=== PATIENT | female | born 1960 | race Caucasian/White ===

== ENCOUNTER 2018-07-30 11:55 | Emergency (ER) | payer MEDICAID, SELFPAY ==
[2018-07-30 12:13] VITALS: BP 108/79; PULSE 72; RESP 18; TEMP 36.7; O2SAT 97
--- NOTE | 2018-07-30 12:56 | DI.RAD_ITS ---
SYMPTOMS/DIAGNOSIS: LEFT FOOT INJURY, H/O FUSION LEFT FOOT: There is a mildly displaced oblique fracture of the distal metaphysis of the 5th metatarsal.
--- NOTE | 2018-07-30 12:57 | W.ED.GENAD ---
Discharge Plan Disposition Patient Disposition: HOME Condition: Fair Discharge Details Chief Complaint: Orthopedic Clinical Impression: Closed fracture of fifth metatarsal bone Primary Care Provider: Ronel Pike ED Provider: Adry Madden Home Meds and New Rx's Prescriptions: Continue gabapentin 300 MG capsule 900 mg PO TID Qty: 270 RF: 6 ibuprofen 200 MG capsule 3 - 4 tab PO PRN PRNRF: 0 acetaminophen [Mapap Extra Strength] 500 MG tablet 1,000 mg PO TID Qty: 180 RF: 3 Discharge Instructions Instructions: Foot Fracture in Adults (ED) Additional Instructions: Encourage rest, ice, elevation. Keep boot on until evaluated by orthopedics. Please contact office to schedule follow-up appointment. Tylenol and/or ibuprofen as needed for discomfort Referrals: Sammy Mercado MD [ [facility] STAFF PHYSICIAN] - ([phone]) Discharge Data Discharge Date/Time-TO BE ENTERED AT DEPARTURE: 07/30/18 14:09 Medical Decision Making Patient presents today with chief complaint of left foot pain. On exam, patient was noted to have ecchymosis along the lateral aspect of the midfoot dorsally. No swelling. Patient has chronic sensation changes but denies any acute changes since the incident yesterday. The anatomy of the patient's foot is greatly changed associated with surgical changes, patient has history of foot and ankle fusion. We will obtain imaging. Discussed this plan with the patient is in agreement XR significant for fracture of the 5th metat[address] Dr. Mercado reviewed xr, advised boot. Patient placed in boot. Encouraged rest, ice, elevation. Tylenol and/or Motrin as needed for discomfort. She will f/u Dr. Mercado, patient will call to schedule appointment. Will keep boot in place until evaluated by orthopedics. All of her questions and concerns were addressed, she is in agreement with this plan. Advised on activities that she should avoid that may displace this further. HPI General Mode of arrival: ambulatory. Date/Time Provider Initiated Documentation: 07/30/18 12:02. Limitations to Documentation: no limitations. Information obtained by: patient. HPI Narrative: Patient presents today with chief complaint of left foot pain. Patient has history of left foot and ankle fusion, reports that her fusion was performed [address] Mercado. She reports she typically does quite well with this, has found supportive shoes that help with her management of her chronic discomfort. States that she has altered sensation chronically, reports that she often feels like there is something between my toes. Reports that yesterday she missed step coming down steps and since that time has noted pain along the lateral midfoot with associated ecchymosis. Denies any acute change in her sensation. Denies other injury to time the incident. Did not actually fall Related Data Home Medications Medication Instructions Recorded Confirmed acetaminophen [Mapap Extra 1,000 mg PO TID #180 tab 12/06/16 Strength] ibuprofen 3 - 4 tab PO PRN PRN 12/06/16 12/06/16 gabapentin 900 mg PO TID #270 tab-cap 03/04/18 Previous Rx's Medication Instructions Recorded acetaminophen [Mapap Extra 1,000 mg PO TID #180 tab 12/06/16 Strength] gabapentin 900 mg PO TID #270 tab-cap 03/04/18 Allergies Allergy/AdvReac Type Severity Reaction Status Date / Time naproxen sodium [From Aleve] Allergy Intermediate Hives Unverified 07/30/18 12:17 adhesive AdvReac Mild Blistering Unverified 01/01/18 08:55 morphine AdvReac hallucinations/can't Unverified 01/01/18 08:55 talk General Stated Complaint: Orthopedic VISHNU: 4 Review of Systems Constitutional Denies chills and Denies fever(s) Musculoskeletal Reports as per HPI Integumentary/Breasts Reports as per HPI Neurologic Reports as per HPI [facility] Social History Smoking/Tobacco Use Status: Former Tobacco Use Exam Const General: cooperative, healthy appearing, comfortable, no acute distress and well developed Nutritional Appearance: average body habitus and well nourished Orientation: alert and awake Eyes General: appearance normal, both eyes and all related structures Resp Effort & Inspection: normal respiratory effort, able to speak in complete sentences and no respiratory distress Cardio Rate: regular rate Rhythm: regular rhythm Skin General skin exam: ecchymosis (dorsal lateral aspect of the left foot) and no erythema Neuro General: alert and awake Cognition: normal cognition Speech: speech normal Gait: antalgic Motor: tone not normal throughout (patient strength of LLE is limited secondary to limited ROM) Sensory Exam: sensory deficits noted (patient reports chronic deficits) Extrem General: abnormal to inspection (patient has chronic appearing deformities to the left ankle and foot. Incisions appear to have healed well. Ecchymosis noted over dorsal aspect of foot. This is area of maximal discomfort. Minimal pain with palpation over the 5th metatarsal) and normal capillary refill Psych Appearance: grossly normal and well kempt Mental Status: mental status grossly normal Speech and Movement: speech and movement normal Course Vital Signs Temperature 36.7 C 07/30/18 12:13 Pulse 72 07/30/18 12:13 Respiratory Rate 18 07/30/18 12:13 Blood Pressure 108/79 07/30/18 12:13 Pulse Oximetry 97 07/30/18 12:13 Temperature 36.7 C 07/30/18 12:13 Temperature Source Temporal Artery Scan 07/30/18 12:13 Pulse 72 07/30/18 12:13 Respiratory Rate 18 07/30/18 12:13 Respiratory Effort 07/30/18 12:15 Blood Pressure 108/79 07/30/18 12:13 Blood Pressure Position Sitting 07/30/18 12:13 Pulse Oximetry 97 07/30/18 12:13 Oxygen Delivery Method Room Air 07/30/18 12:13 Oxygen Flow Rate 0 07/30/18 12:13 Pain Level 6 07/30/18 12:15
--- NOTE | 2018-07-30 13:01 | ED.GENADUL_ITS ---
Discharge Plan Disposition Patient Disposition: HOME Condition: Fair Discharge Details Chief Complaint: Orthopedic Clinical Impression: Closed fracture of fifth metatarsal bone Primary Care Provider: Ronel Pike ED Provider: Adry Madden Home Meds and New Rx's Prescriptions: Continue gabapentin 300 MG capsule 900 mg PO TID Qty: 270 RF: 6 ibuprofen 200 MG capsule 3 - 4 tab PO PRN PRNRF: 0 acetaminophen [Mapap Extra Strength] 500 MG tablet 1,000 mg PO TID Qty: 180 RF: 3 Discharge Instructions Instructions: Foot Fracture in Adults (ED) Additional Instructions: Encourage rest, ice, elevation. Keep boot on until evaluated by orthopedics. Please contact office to schedule follow-up appointment. Tylenol and/or ibuprofen as needed for discomfort Referrals: Sammy Mercado MD [ [facility] STAFF PHYSICIAN] - ([phone]) Discharge Data Discharge Date/Time-TO BE ENTERED AT DEPARTURE: 07/30/18 14:09 Medical Decision Making Patient presents today with chief complaint of left foot pain. On exam, patient was noted to have ecchymosis along the lateral aspect of the midfoot dorsally. No swelling. Patient has chronic sensation changes but denies any acute changes since the incident yesterday. The anatomy of the patient's foot is greatly changed associated with surgical changes, patient has history of foot and ankle fusion. We will obtain imaging. Discussed this plan with the patient is in agreement XR significant for fracture of the 5th met[address] Mercado reviewed xr, advised boot. Patient placed in boot. Encouraged rest, ice, elevation. Tylenol and/or Motrin as needed for discomfort. She will f/u Dr. Mercado, patient will call to schedule appointment. Will keep boot in place until evaluated by orthopedics. All of her questions and concerns were addressed, she is in agreement with this plan. Advised on activities that she should avoid that may displace this further. HPI General Mode of arrival: ambulatory . Date/Time Provider Initiated Documentation: 07/30/18 12:02 . Limitations to Documentation: no limitations . Information obtained by: patient . HPI Narrative: Patient presents today with chief complaint of left foot pain. Patient has history of left foot and ankle fusion, reports that her fusion was performed [address] Mercado. She reports she typically does quite well with this, has found supportive shoes that help with her management of her chronic discomfort. States that she has altered sensation chronically, reports that she often feels like there is something between my toes. Reports that yesterday she missed step coming down steps and since that time has noted pain along the lateral midfoot with associated ecchymosis. Denies any acute change in her sensation. Denies other injury to time the incident. Did not actually fall Related Data Home Medications Medication Instructions Recorded Confirmed acetaminophen [Mapap Extra 1,000 mg PO TID #180 tab 12/06/16 Strength] ibuprofen 3 - 4 tab PO PRN PRN 12/06/16 12/06/16 gabapentin 900 mg PO TID #270 tab-cap 03/04/18 Previous Rx's Medication Instructions Recorded acetaminophen [Mapap Extra 1,000 mg PO TID #180 tab 12/06/16 Strength] gabapentin 900 mg PO TID #270 tab-cap 03/04/18 Allergies Allergy/AdvReac Type Severity Reaction Status Date / Time naproxen sodium [From Aleve] Allergy Intermediate Hives Unverified 07/30/18 12: 17 adhesive AdvReac Mild Blistering Unverified 01/01/18 08:55 morphine AdvReac hallucinations/can't Unverified 01/01/18 08:55 talk General Stated Complaint: Orthopedic VISHNU: 4 Review of Systems Constitutional Denies chills and Denies fever(s) Musculoskeletal Reports as per HPI Integumentary/Breasts Reports as per HPI Neurologic Reports as per HPI [facility] Social History Smoking/Tobacco Use Status: Former Tobacco Use Exam Const General: cooperative, healthy appearing, comfortable, no acute distress and well developed Nutritional Appearance: average body habitus and well nourished Orientation: alert and awake Eyes General: appearance normal, both eyes and all related structures Resp Effort & Inspection: normal respiratory effort, able to speak in complete sentences and no respiratory distress Cardio Rate: regular rate Rhythm: regular rhythm Skin General skin exam: ecchymosis (dorsal lateral aspect of the left foot) and no erythema Neuro General: alert and awake Cognition: normal cognition Speech: speech normal Gait: antalgic Motor: tone not normal throughout (patient strength of LLE is limited secondary to limited ROM) Sensory Exam: sensory deficits noted (patient reports chronic deficits) Extrem General: abnormal to inspection (patient has chronic appearing deformities to the left ankle and foot. Incisions appear to have healed well. Ecchymosis noted over dorsal aspect of foot. This is area of maximal discomfort. Minimal pain with palpation over the 5th metatarsal) and normal capillary refill Psych Appearance: grossly normal and well kempt Mental Status: mental status grossly normal Speech and Movement: speech and movement normal Course Vital Signs Temperature 36.7 C 07/30/18 12:13 Pulse 72 07/30/18 12:13 Respiratory Rate 18 07/30/18 12:13 Blood Pressure 108/79 07/30/18 12:13 Pulse Oximetry 97 07/30/18 12:13 Temperature 36.7 C 07/30/18 12:13 Temperature Source Temporal Artery Scan 07/30/18 12:13 Pulse 72 07/30/18 12:13 Respiratory Rate 18 07/30/18 12:13 Respiratory Effort 07/30/18 12:15 Blood Pressure 108/79 07/30/18 12:13 Blood Pressure Position Sitting 07/30/18 12:13 Pulse Oximetry 97 07/30/18 12:13 Oxygen Delivery Method Room Air 07/30/18 12:13 Oxygen Flow Rate 0 07/30/18 12:13 Pain Level 6 07/30/18 12:15
== END 2018-07-30 14:09 | disposition home or self-care (01) ==
LOC: ER 14:00
PROVIDERS: Emergency Provider Physician Assistant; PCP Nurse Practitioner
DX: S92.352A Displaced fracture of fifth metatarsal bone, left foot, initial encounter for closed fracture (principal); X50.1XXA Overexertion from prolonged static or awkward postures, initial encounter
CPT/HCPCS: 29505; 99284; 73630; 99282; L4361

== ENCOUNTER 2018-08-18 15:21 | Outpatient (CLI) | payer MEDICAID, SELFPAY ==
--- NOTE | 2018-08-18 15:35 | DI.RAD_ITS ---
SYMPTOMS/DIAGNOSIS: EVALUATE LEFT 5TH METATARSAL FX LEFT FOOT: Three views were obtained and again show hindfoot fusion and a mildly displaced fracture of the 5th metatarsal. Alignment appears essentially unchanged in comparison with the examination of July 30.
== END 2018-08-18 15:41 ==
PROVIDERS: PCP Nurse Practitioner; Visit Provider Student in an Organized Health Care Education/Training Program
DX: S92.352D Displaced fracture of fifth metatarsal bone, left foot, subsequent encounter for fracture with routine healing (principal); Z98.1 Arthrodesis status
CPT/HCPCS: 73630

== ENCOUNTER 2018-08-20 11:55 | Outpatient (REF) | payer MEDICAID, SELFPAY ==
[2018-08-20 14:42] LABS: Glucose 91 mg/dL (70-100); TSH (W/Ref FT4) 1.56 uIU/mL (0.358-3.74)
[2018-08-20 15:01] LABS: Cholesterol 245 mg/dL (50-200); HDL Cholesterol 67 mg/dL (40-60); LDL CHOLESTEROL 168 mg/dL (<100); Triglyceride 68 mg/dL (30-150)
[2018-08-21 12:01] LABS: Hepatitis C Ab w Rflx HCV PCR Negative (NEGAT)
== END 2018-08-20 12:15 ==
LOC: NCHCN 11:55
PROVIDERS: PCP Nurse Practitioner; Visit Provider Nurse Practitioner
DX: Z00.00 Encounter for general adult medical examination without abnormal findings (principal); Z13.1 Encounter for screening for diabetes mellitus; Z13.29 Encounter for screening for other suspected endocrine disorder; Z11.59 Encounter for screening for other viral diseases; Z13.220 Encounter for screening for lipoid disorders
CPT/HCPCS: 80061; 82947; 83721; 86803; 84443

== ENCOUNTER 2018-09-02 00:31 | Outpatient (CLI) | payer MEDICAID, SELFPAY ==
--- NOTE | 2018-09-02 08:25 | DI.MAMMO_ITS ---
SYMPTOM/DIAGNOSIS: SCREENING, Z12.39, FAM HX MAMMOGRAMS: Mammograms were interpreted according to the usual protocol including computer analysis with CAD system, tomosynthesis and C view imaging. Comparison with prior examinations. Breast density B. No masses or microcalcifications are seen. There is nothing to suggest malignancy. IMPRESSION: Negative mammogram. Routine screening is recommended. Category I. MQSA ASSESSMENT OF FINDINGS: Negative. Category 1. Patient will receive a letter notifying them of these results. BI-RADS category B. There are scattered areas of fibroglandular density.
== END 2018-09-02 00:51 ==
PROVIDERS: PCP Nurse Practitioner; Visit Provider Nurse Practitioner
DX: Z12.31 Encounter for screening mammogram for malignant neoplasm of breast (principal); Z80.3 Family history of malignant neoplasm of breast
CPT/HCPCS: 77063; 77067

== ENCOUNTER 2018-10-14 09:43 | Day surgery (SDC) | payer MEDICAID, SELFPAY ==
[2018-10-14 10:00] VITALS: BP 107/71; PULSE 77; RESP 16; TEMP 36.8; O2SAT 96
[2018-10-14] MEDS: Lactated Ringers 1,000 ML 80 ML IV (10:28)
--- NOTE | 2018-10-14 11:20 | NERVE_PTH ---
PATIENT: Nakita Medeiros LOC: [facility] U#:[id number] AGE/SX: 58/F ROOM: RE10/14/[address]: Sammy Mercado MD : [id number] BED: DIS: 10/14/2018 SPEC #: [id number] RECD: 10/14/18 13:04 STATUS: JAYANT REJeffery #: [id number] CLARK: 10/14/18 11:[address]: Sammy Mercado DEPT: Surgical Specimen RECD BY: Jolie Moran ENTERED: 10/14/18 13:05 SP TYPE: NERVE OTHR DR: Ronel Pike Tissues: 1 - NERVE BIOPSY Procedures: GROSS AND MICRO LEVEL 2 GROSS AND MICRO LEVEL 4 Comments: [id number]
--- NOTE | 2018-10-14 11:43 | W.PM.DSUDISC ---
Discharge Plan Disposition Patient Disposition: HOME Condition: Good Discharge Details Reason For Visit: L Sural Nerve Excision Attending Provider: Sammy Mercado Primary Care Provider: Ronel Pike Home Meds and New Rx's Prescriptions: New ibuprofen 600 mg tablet 600 mg PO TID PRNQty: 90 RF: 3 acetaminophen 500 mg capsule 1,000 mg PO Q8H PRN (Reason: pain) Qty: 90 RF: 0 Continue gabapentin 300 mg capsule 900 mg PO TID Qty: 270 RF: 6 Discontinued ibuprofen 200 MG capsule 3 - 4 tab PO PRN PRNRF: 0 acetaminophen [Mapap Extra Strength] 500 MG tablet 1,000 mg PO TID PRNRF: 0 Discharge Instructions Additional Instructions: Activity: You may bear weigh on the left leg as tolerated. Use crutches for support. To protect the incision and for comfort, you should wear the fracture walking boot. You may take it off as you desire when not ambulating. You may move your ankle and foot as tolerated. Dressings: The initial dressing should stay on for 3 days. It may then be removed and changed, replaced with gauze and a wrap. It may get wet after 3 days. Medications: - You should take Tylenol and Ibuprofen for baseline pain. - You may apply ice to the ankle. - If you need something stronger, please call Dr. Mercado's office. Follow-up: 7-10 days Equipment/Supplies: Partial Weight Bearing Crutches Activity:: Elevate Remove Dressings/Wound Care:: 72 hours Shower/Bathe:: 72 hours Diet:: As Tolerated Discharge Orders Discharge Orders: Discharge Order (Routine); Ordered 10/14/18 Ordered By: Sammy Mercado DS: Diagnosis Discharge Diagnosis (1) Neuropathy of left sural nerve: Status: Acute
[2018-10-14 12:30] VITALS: BP 97/65; PULSE 69; RESP 16; TEMP 36.1; O2SAT 96
--- NOTE | 2018-10-15 07:37 | ROE_ITS ---
REPORT OF OPERATIVE PROCEDURE DATE OF SURGERY October 14, 2018 PREOPERATIVE DIAGNOSIS Left sural nerve neuroma. POSTOPERATIVE DIAGNOSIS Left sural nerve neuroma. SURGERY Left sural nerve debridement and neurectomy. SURGEON Sammy Mercado M.D. [employer] Sofie Ordoñez PA-C FINDINGS There was a notable area of demyelination and discoloration of the nerve at the level of previous scar from multiple hind-foot surgeries. The sural nerve was transected proximally and allowed to retract into the fatty tissues of the posterior calf. ANESTHESIA MAC ESTIMATED BLOOD LOSS Minimal. COMPLICATIONS None. DISPOSITION The patient was awakened from anesthesia and taken back to the PACU in a stable condition. SPECIMENS Sural nerve. INDICATION FOR PROCEDURE Nakita is a 58-year old who has had multiple high-foot procedures. She has always had some numbness after her surgeries. However, after this most recent surgery, she had an uncomfortable sensation in the fourth web space between the 4th and 5th toes and along the lateral border of the foot. We have tried various conservative treatment options. She had been on chronic gabapentin therapy. However, she continued to have this uncomfortable sensation. As a trade for the uncomfortable sensation and numbness, I did offer sural nerve excision. I am hopeful this will remove the impetus of the discomfort. I did explain to Nakita that she would have permanent numbness over that lateral border of the foot. I also discussed the possibility of having a recurrent neuroma from the cut edge of the nerve. After discussing these treatment options, she desired to proceed. PROCEDURE DESCRIPTION Nakita was greeted in the preoperative holding area. Her identity was confirmed and the correct side was identified and marked. The consent was reviewed with the patient and signed. The history and physical was performed. She was taken back to the Operating Room and placed in the supine position. A large bump was placed underneath the left hip to internally rotate the left leg. The left leg was placed on pillows to elevate it. Prophylactic antibiotics in the form of cefazolin were given. The left leg was prepped with ChloraPrep and draped in a standard fashion. A time-out was performed for safe surgery. The planned surgical site was then injected with 0.25% bupivacaine with epinephrine. Starting shelter between the Achilles tendon and the lateral malleolus, I performed a linear incision. This was taken down sharply proximal to the old incision to identify the sural nerve. The incision was then extended distally in line with the previous incision and extending on to the incision of the lateral hindfoot. This was taken down through the skin. All bleeding was stopped with electrocautery. The lesser vein was identified and then the sural nerve posterior to it. The sural nerve was then dissected fully, both proximally and distally. Once we came into the lateral aspect of the hindfoot, there was notable compression, especially at its branching points to the lateral calcaneus. It was dissected through some of the scar tissue where there was notably, what appeared to be injury to the nerve with demyelination and some significant discoloration. This was traced onto the lateral calcaneus. Once it was dissected fully it was sharply divided. For the proximal aspect of the nerve, I was planning to bury this into the muscles of the either the lateral compartment or the FHL. However, there was a significant amount of fat in this area proximal to the lateral malleolus, which the nerve resided in. There was also a branch for the lateral aspect of the Achilles tendon, which I also did not want to disrupt, and therefore I transected it in the fat and allowed it to retract into the fat. It was under no tension. It was not close to skin or any other nerve or vein branches. The wound was then thoroughly irrigated. The deep tissues were reapproximated with #3-0 Vicryl. The skin was closed with #4-0 Nylon. A dressing of Xeroform, 4x4s and an Mac wrap were applied. She was placed into a fracture walker boot. At the end of the case, all counts were correct. The sural nerve was sent for pathology.
== END 2018-10-14 13:00 | disposition home or self-care (01) ==
PROVIDERS: PCP Nurse Practitioner; Visit Provider Student in an Organized Health Care Education/Training Program
PROC: (CPT 64704; principal; 2018-10-14 11:15)
DX: D36.10 Benign neoplasm of peripheral nerves and autonomic nervous system, unspecified (principal); G57.82 Other specified mononeuropathies of left lower limb
CPT/HCPCS: 64704; 88305; 88302; E0114; J0690; J1100; J1885; J2405; L4361

== ENCOUNTER 2019-07-22 12:20 | Outpatient (REF) | payer MEDICAID, SELFPAY ==
[2019-07-22 19:27] LABS: ALT 24 U/L (14-59); AST 19 U/L (15-37); Albumin 3.7 g/dL (3.4-5.0); Alkaline Phosphatase 91 U/L (46-116); Anion Gap 9.8 mmol/L (3-11); BUN 14 mg/dL (7-18); Bilirubin, Total 0.3 mg/dL (0.2-1.0); CO2 28.2 mmol/L (21.0-32.0); CREATININE 0.75 mg/dL (0.55-1.02); Calculated LDL 136 mg/dL; Chloride 103 mmol/L (98-107); Cholesterol 247 mg/dL (50-200); Glucose 100 mg/dL (70-100); HDL Cholesterol 53 mg/dL (40-60); Potassium 4.1 mmol/L (3.5-5.1); Sodium 141 mmol/L (136-145); Total Protein 6.7 g/dL (6.4-8.2); Triglyceride 293 mg/dL (30-150)
== END 2019-07-22 12:40 ==
LOC: NCHCN 12:20
PROVIDERS: PCP Nurse Practitioner; Visit Provider Nurse Practitioner
DX: E78.5 Hyperlipidemia, unspecified (principal); R60.0 Localized edema
CPT/HCPCS: 80053; 80061

== ENCOUNTER 2020-03-24 13:44 | Outpatient (REF) | payer MEDICAID, SELFPAY ==
[2020-03-25 17:43] LABS: COVID-19 RT-PCR Result NEGATIVE (Negative)
== END 2020-03-24 14:04 ==
LOC: NCHCN 13:44
PROVIDERS: PCP Nurse Practitioner; Visit Provider Nurse Practitioner Family
DX: J06.9 Acute upper respiratory infection, unspecified (principal)
CPT/HCPCS: U0003

== ENCOUNTER 2020-04-27 18:21 | Outpatient (REF) | payer MEDICAID, SELFPAY ==
[2020-04-27 16:57] LABS: ALT 29 U/L (14-59); AST 23 U/L (15-37); Albumin 3.8 g/dL (3.4-5.0); Alkaline Phosphatase 95 U/L (46-116); Anion Gap 6.8 mmol/L (3-11); BUN 17 mg/dL (7-18); Bilirubin, Total 0.4 mg/dL (0.2-1.0); CO2 30.2 mmol/L (21.0-32.0); CREATININE 0.73 mg/dL (0.55-1.02); Calcium 9.4 mg/dL (8.5-10.1); Chloride 100 mmol/L (98-107); Glucose 96 mg/dL (74-106); Potassium 4.7 mmol/L (3.5-5.1); Sodium 137 mmol/L (136-145); TSH (W/Ref FT4) 0.94 uIU/mL (0.36-3.74); Total Protein 6.8 g/dL (6.4-8.2)
[2020-04-27 17:31] LABS: Abs Immature Grans 0.01 k/cumm (0.0-0.09); Absolute Basophil Count 0.06 k/cumm (0.0-0.2); Absolute Eosinophil Count 0.18 k/cumm (0.0-0.7); Absolute Lymphocyte Count 2.42 k/cumm (1.2-3.4); Absolute Monocyte Count 0.64 k/cumm (0.11-0.7); Absolute Neutrophil Count 3.34 k/cumm (1.2-6.7); Basophils % 0.9; Eosinophils % 2.7; HCT 37.9 % (36.0-46.0); HGB 12.1 g/dL (12.0-15.5); Immature Grans % 0.2 %; Lymphocytes % 36.4; Mean Corp. HGB Concentration 31.9 g/dL (32.0-36.0); Mean Corpuscular Hemoglobin 28.5 pg (27.0-33.0); Mean Corpuscular Volume 89.4 fL (80-95); Mean Platelet Volume 10.1 fL (8.0-11.0); Monocytes % 9.6; Neutrophils % 50.2; Platelet Count 395 x1000/uL (130-400); RBC 4.24 m/cumm (4.00-5.20); RBC Distribution Width 13.3 % (11.7-14.6); White Blood Cell Count 6.65 k/cumm (4.4-10.8)
[2020-04-27 19:39] LABS: ESR 21 mm/hr (0-30)
== END 2020-04-27 18:41 ==
LOC: NCHCN 18:21
PROVIDERS: PCP Nurse Practitioner; Visit Provider Nurse Practitioner
DX: R68.2 Dry mouth, unspecified (principal); E78.5 Hyperlipidemia, unspecified; H04.121 Dry eye syndrome of right lacrimal gland; H04.122 Dry eye syndrome of left lacrimal gland
CPT/HCPCS: 80053; 85652; 84443; 85025

== ENCOUNTER 2020-09-26 05:46 | Outpatient (REF) | payer MEDICAID, SELFPAY ==
[2020-09-29 07:30] LABS: Patient Race White; SARS-CoV-2 RNA Undetected (Undetected); SARS-CoV-2 Specimen Source Nasal
== END 2020-09-26 06:06 ==
LOC: NCHCN 05:46
PROVIDERS: PCP Nurse Practitioner; Visit Provider Nurse Practitioner Family
DX: Z20.828 Contact with and (suspected) exposure to other viral communicable diseases (principal)
CPT/HCPCS: U0003

== ENCOUNTER 2020-12-14 02:09 | Outpatient (CLI) | payer MEDICAID, SELFPAY ==
--- NOTE | 2020-12-14 12:49 | DI.MAMMO_ITS ---
EXAM: MAMMO SCREENING CLINICAL HISTORY: SCREENING, Z12.39 TECHNIQUE: Mammograms were interpreted according to the usual protocol including computer analysis w ISC8 CAD system, tomosynthesis and C-view imaging. COMPARISON: Two thousand thirteen through 2018 FINDINGS: The breasts are composed of mainly fatty density , Breast Density category A. No suspicious masses or suspicious microcalcifications are seen. No skin thickening or abnormal axillary lymph nodes are seen. There has been no significant change from prior exams. IMPRESSION: BI-RADS Category 1, Negative mammogram Yearly screening mammography is recommended. Breast Density - Category A, fatty density. A negative radiographic report should not delay biopsy if a dominant or clinically suspicious mass is present. Up to ten percent of cancers are not identified on mammography. A negative report may reinforce clinical impression. Adenosis and dense breasts may obscure an underlying neoplasm. False positive reports average 6 to 10%. Patient will receive a letter notifying them of these results.
== END 2020-12-14 02:10 ==
LOC: DI 02:09
PROVIDERS: PCP Nurse Practitioner; Visit Provider Nurse Practitioner
DX: Z12.31 Encounter for screening mammogram for malignant neoplasm of breast (principal)
CPT/HCPCS: 77063; 77067

== ENCOUNTER 2020-12-15 12:08 | Emergency (ER) | payer MEDICAID, SELFPAY ==
[2020-12-15 12:15] VITALS: BP 144/92; PULSE 114; RESP 16; TEMP 36.7; O2SAT 93
[2020-12-15] MEDS: Normal Saline 1,000 ML 1000 ML IV ×2 (12:30→13:30)
[2020-12-15 12:41] LABS: Lactate 2.4 mmol/L (0.6-1.4)
[2020-12-15 12:43] LABS: Abs Immature Grans 0.03 10^3/uL (0.0-0.06); Absolute Eosinophil Count 0.12 10^3/uL (0.0-0.7); Absolute Lymphocyte Count 2.08 10^3/uL (1.2-3.4); Absolute Monocyte Count 0.56 10^3/uL (0.1-0.8); Absolute Neutrophil Count 5.34 10^3/uL (1.2-6.7); Basophils % 1.2; Eosinophils % 1.5; HCT 39.5 % (36.0-46.0); HGB 13.3 g/dL (11.2-15.7); Immature Grans % 0.4; Lymphocytes % 25.3; MCH 29.7 pg (27.0-33.0); MCHC 33.7 % (32.0-36.0); MCV 88.2 fL (80-95); MPV 8.7 fL (8.0-11.0); Monocytes % 6.8; Neutrophils % 64.8; Nucleated RBC 0 %; Platelet Count 380 10^3/uL (130-400); RBC 4.48 10^6/uL (3.93-5.22); RDW 13.6 % (11.7-14.6); RDW-SD 44.4 fL; WBC 8.23 10^3/uL (4.4-10.8)
[2020-12-15 12:48] LABS: Bilirubin Negative (Negative); Blood Trace-intact (Negative); Clarity Sl Cloudy (Clear); Glucose Negative (Negative); Ketones 15 mg/dL (Negative); Leukocyte Esterase Negative (Negative); Nitrite Negative (Negative); Specific Gravity 1.025 (1.005-1.025); pH 5.5 (5-8)
[2020-12-15 12:56] LABS: ALT 84 U/L (14-59); AST 42 U/L (15-37); Albumin 3.9 g/dL (3.4-5.0); Alkaline Phosphatase 114 U/L (46-116); Anion Gap 13.2 mmol/L (3-11); BUN 12 mg/dL (7-18); Bilirubin, Total 0.6 mg/dL (0.2-1.0); CO2 24.8 mmol/L (21.0-32.0); CREATININE 0.7 mg/dL (0.55-1.02); Calcium 9.2 mg/dL (8.5-10.1); Chloride 97 mmol/L (98-107); Glucose 105 mg/dL (74-106); Lipase 67 U/L (73-393); Potassium 4.2 mmol/L (3.5-5.1); Sodium 135 mmol/L (136-145); Total Protein 7.8 g/dL (6.4-8.2)
[2020-12-15 12:58] LABS: Bacteria Few HPF (Negative); C & S Indicated? No/Sq. Contamination; Casts Negative LPF (Negative); Crystals Negative HPF (Negative); Epithelial Cells Many HPF (Negative); Mucus Negative (Negative); RBC 0-2 HPF (0-2)
--- NOTE | 2020-12-15 14:04 | ED.GENADUL_ITS ---
Discharge Plan Disposition Patient Disposition: HOME Condition: Stable Discharge Details Clinical Impression: Abdominal pain Primary Care Provider: Ronel Pike ED Provider: Ady Villagran Home Meds and New Rx's Prescriptions: Continued multivitamin tablet 1 tab PO DAILY RF: 0 Calcium with Vitamin D 1 tab PO DAILY RF: 0 buprenorphine-naloxone [Suboxone] 8-2 mg film 1 film SL DAILY RF: 0 fluticasone propionate [Flonase Allergy Relief] 50 mcg/actuation spray,suspension 1 spray MIKE BID RF: 0 gabapentin 300 mg capsule 900 mg PO TID Qty: 270 RF: 6 ibuprofen 600 mg tablet 600 mg PO TID PRNQty: 90 RF: 3 acetaminophen 500 mg capsule 1,000 mg PO Q8H PRN (Reason: pain) Qty: 90 RF: 0 Discharge Instructions Instructions: Abdominal Pain (ED) Additional Instructions: CT imaging and laboratory values do not reveal any obvious emergent process. Please watch for new or worsening symptoms and return to the ER for any concerns as we discussed there are additional outpatient studies that may be indicated to further evaluate your symptoms. Abdominal ultrasound, HIDA scan, surgical referral may all be indicated. Please follow-up with your primary care provider on Saturday as already scheduled to discuss your abdominal pain that has been going on for over 1 month and further evaluation. Discharge Data Discharge Date/Time-TO BE ENTERED AT DEPARTURE: 12/15/20 15:55 Medical Decision Making 60-year-old female presenting with months history of intermittent abdominal pain primarily in the epigastric and right upper quadrant area, typically worse with p.o. intake. Reports decreased p.o. intake and therefore decreased bowel movements but still able to move her bowels. She is scheduled to be seen by her primary care provider on Saturday but was concerned about a twisted bowel and did not want to wait until Saturday if there is something dangerous happening here. Clinically she appears well, nontoxic, afebrile. She was tachycardic upon presentation but during my evaluation her heart rate was in the 90s. She reports at times the pain is a 10 out of 10. Given her duration of symptoms, presentation with tachycardia, subjective tinnitus and pain, will obtain IV access, CBC, CMP, lipase, lactate, urinalysis, give IV fluid. Differential includes but not excluded to GERD, gastritis, peptic ulcer disease, biliary colic, less likely bowel obstruction, ileus, colitis, even less suspicious for acute mesenteric ischemia. Laboratory values reveal a white blood cell count of 8.23 hemoglobin 13.3 hematocrit 39.5 platelet count 388. Sodium 135 potassium 4.2 chloride 97, CO2 24.8 creatinine 0.7 with a GFR greater than 60. Glucose 105 calcium 92 bilirubin 0.6 AST 42 ALT 84 alk phosphatase 114, lipase 67. Urinalysis reveals 15 ketones, trace intact blood, many epithelial cells, contamination. No clear infection. Lactate 2.4 Upon reevaluation patient is resting comfortably. We discussed her initial laboratory values. She is in the process of receiving her first liter of IV fluid, will give a second and I would like to repeat her lactate. Her abdomen is soft, nonsurgical, there is no indication that she has pain at the proportion to her examination. We discussed imaging. Given the location of her symptoms, worsening with food, I certainly do question if this could be biliary colic. Her bilirubin is normal, no elevated white count, LFTs are not grossly abnormal. Given her elevated lactate, her concern of bowel obstruction, I believe from an emergency room standpoint obtaining CT imaging of her abdomen and pelvis with contrast is more prudent than obtaining ultrasound. Patient is agreeable to this plan and if CT imaging is normal she is comfortable following up with her primary care provider on Saturday as already scheduled for further testing such as ultrasound and/or referral to GI-surgery. CT imaging read by radiology as unremarkable CT scan of the abdomen and pelvis. Repeat lactate 0.8 after receiving 1.5 L of IV fluid. We discussed her repeat lactate and her unremarkable CT imaging. Patient is relieved. We did discuss the importance of additional studies such as ultrasound, HIDA scan, potential endoscopy, etc. Patient is comfortable discharge at this time and will pursue further evaluation on Saturday with her primary care provider. She was given strict return precautions. Patient has no additional questions or concerns prior to discharge. Heart rate now in the 80s. Blood pressure 126/87. Patient remains afebrile. Medical Records Medical records reviewed: Yes I reviewed the patient's medical records. Imaging Data Radiologic Study: Attestation: I personally reviewed and interpreted this imaging study as follows: Imaging: CT Scan Radiologist's impression: CT of abdomen and pelvis with contrast unremarkable per radiology Lab Data Lab results reviewed: Yes I reviewed the patient's lab results. Labs: Laboratory Tests Range/Units 12/15/20 12/15/20 12/15/20 12:30 12:30 12:30 WBC (4.4-10.8) 10^3/uL RBC (3.93-5.22) 10^6/uL Hgb (11.2-15.7) g/dL Hct (36.0-46.0) % MCV (80-95) fL MCH (27.0-33.0) pg MCHC (32.0-36.0) % RDW (11.7-14.6) % Plt Count (130-400) 10^3/uL MPV (8.0-11.0) fL Immature Gran % Neutrophils % Lymphocytes % Monocytes % Eosinophils % Basophils % Nucleated RBC % % Absolute Neutrophils (1.2-6.7) 10^3/uL Absolute Lymphocytes (1.2-3.4) 10^3/uL Absolute Monocytes (0.1-0.8) 10^3/uL Absolute Eosinophils (0.0-0.7) 10^3/uL Absolute Basophils (0.0-0.2) 10^3/uL VBG Lactate (0.6-1.4) mmol/L 2.4 H* Sodium (136-145) mmol/L 135 L Potassium (3.5-5.1) mmol/L 4.2 Chloride (98-107) mmol/L 97 L Carbon Dioxide (21.0-32.0) mmol/L 24.8 Anion Gap (3-11) mmol/L 13.2 H BUN (7-18) mg/dL 12 Creatinine (0.55-1.02) mg/dL 0.7 Estimated GFR/1.73 m2 (mL/min/1.73m2) >= 60.00 Glucose (74-106) mg/dL 105 Calcium (8.5-10.1) mg/dL 9.2 Total Bilirubin (0.2-1.0) mg/dL 0.6 AST (15-37) U/L 42 H ALT (14-59) U/L 84 H Alkaline Phosphatase (46-116) U/L 114 Total Protein (6.4-8.2) g/dL 7.8 Albumin (3.4-5.0) g/dL 3.9 Lipase (73-393) U/L 67 Urine Color (Yellow) Yellow Urine Clarity (Clear) Sl cloudy Urine pH (5-8) 5.5 Ur Specific [place] (1.005-1.025) 1.025 Urine Protein (Negative) mg/dL Negative Urine Ketones (Negative) mg/dL 15 H Urine Blood (Negative) Trace-intact H Urine Nitrite (Negative) Negative Urine Bilirubin (Negative) Negative Urine Urobilinogen (Up TO 0.2) EU/dL 1.0 H Ur Leukocyte Esterase (Negative) Negative Urine RBC (0-2) HPF 0-2 Urine WBC (0-5) HPF 3-5 Ur Epithelial Cells (Negative) HPF Many Urine Crystals (Negative) HPF Negative Urine Bacteria (Negative) HPF Few Urine Casts (Negative) LPF Negative Urine Mucus (Negative) Negative Ur Culture Indicated? No/sq. contamination Urine Glucose (Negative) mg/dL Negative Range/Units 12/15/20 12/15/20 12:30 14:55 WBC (4.4-10.8) 10^3/uL 8.23 RBC (3.93-5.22) 10^6/uL 4.48 Hgb (11.2-15.7) g/dL 13.3 Hct (36.0-46.0) % 39.5 MCV (80-95) fL 88.2 MCH (27.0-33.0) pg 29.7 MCHC (32.0-36.0) % 33.7 RDW (11.7-14.6) % 13.6 Plt Count (130-400) 10^3/uL 380 MPV (8.0-11.0) fL 8.7 Immature Gran % 0.4 Neutrophils % 64.8 Lymphocytes % 25.3 Monocytes % 6.8 Eosinophils % 1.5 Basophils % 1.2 Nucleated RBC % % 0 Absolute Neutrophils (1.2-6.7) 10^3/uL 5.34 Absolute Lymphocytes (1.2-3.4) 10^3/uL 2.08 Absolute Monocytes (0.1-0.8) 10^3/uL 0.56 Absolute Eosinophils (0.0-0.7) 10^3/uL 0.12 Absolute Basophils (0.0-0.2) 10^3/uL 0.10 VBG Lactate (0.6-1.4) mmol/L 0.8 Sodium (136-145) mmol/L Potassium (3.5-5.1) mmol/L Chloride (98-107) mmol/L Carbon Dioxide (21.0-32.0) mmol/L Anion Gap (3-11) mmol/L BUN (7-18) mg/dL Creatinine (0.55-1.02) mg/dL Estimated GFR/1.73 m2 (mL/min/1.73m2) Glucose (74-106) mg/dL Calcium (8.5-10.1) mg/dL Total Bilirubin (0.2-1.0) mg/dL AST (15-37) U/L ALT (14-59) U/L Alkaline Phosphatase (46-116) U/L Total Protein (6.4-8.2) g/dL Albumin (3.4-5.0) g/dL Lipase (73-393) U/L Urine Color (Yellow) Urine Clarity (Clear) Urine pH (5-8) Ur Specific [place] (1.005-1.025) Urine Protein (Negative) mg/dL Urine Ketones (Negative) mg/dL Urine Blood (Negative) Urine Nitrite (Negative) Urine Bilirubin (Negative) Urine Urobilinogen (Up TO 0.2) EU/dL Ur Leukocyte Esterase (Negative) Urine RBC (0-2) HPF Urine WBC (0-5) HPF Ur Epithelial Cells (Negative) HPF Urine Crystals (Negative) HPF Urine Bacteria (Negative) HPF Urine Casts (Negative) LPF Urine Mucus (Negative) Ur Culture Indicated? Urine Glucose (Negative) mg/dL HPI General Mode of arrival: ambulatory . Date/Time Provider Initiated Documentation: 12/15/20 12:20 . Limitations to Documentation: no limitations . Information obtained by: patient . HPI Narrative: This is a 60-year-old female with a past medical history that includes substance abuse, chronic left foot- ankle pain, presented to the ER today reporting abdominal pain that has been present for approximately 1 month. She denies bad food exposure or recent travel or sick contacts. Reports that the pain is intermittent in nature, typically food or drink makes it worse. She reports that her pain is primarily in her right upper quadrant. She reports the pain is sharp or crampy, at its worst has been 10 out of 10 but currently only a 2 out of 10. She has an appointment on Saturday with her primary care provider regarding this pain however reports that she is concerned about a bowel obstruction and wants to be sure that there is nothing emergent going on that should not wait until Saturday. She denies any fever, chest pain, shortness of breath, back pain, vomiting, dysuria, diarrhea. She reports decreased p.o. intake and therefore decrease in bowel movements but still having bowel movements. Patient reports that currently she feels better right now than she has over the past month. Reports last menstrual cycle at least 4 years ago. Related Data Home Medications Medication Instructions Recorded Confirmed gabapentin 300 mg capsule 900 mg PO TID #270 tab-cap 09/23/18 12/15/20 acetaminophen 1,000 mg PO Q8H PRN #90 cap 10/14/18 12/15/20 ibuprofen 600 mg PO TID PRN #90 tab 10/14/18 12/15/20 Calcium with Vitamin D 1 tab PO DAILY 02/23/19 12/15/20 buprenorphine 8 mg-naloxone 2 mg 1 film SL DAILY 02/23/19 12/15/20 sublingual film fluticasone propionate 50 1 spray MIKE BID gm 02/23/19 12/15/20 mcg/actuation nasal spray,suspension multivitamin 1 tab PO DAILY 02/23/19 12/15/20 Previous Rx's Medication Instructions Recorded gabapentin 300 mg capsule 900 mg PO TID #270 tab-cap 09/23/18 acetaminophen 1,000 mg PO Q8H PRN #90 cap 10/14/18 ibuprofen 600 mg PO TID PRN #90 tab 10/14/18 Allergies Allergy/AdvReac Type Severity Reaction Status Date / Time naproxen sodium [From Aleve] Allergy Intermediate Hives Unverified 12/15/20 12:19 house dust Allergy Unknown Verified 12/15/20 12:19 adhesive AdvReac Mild Blistering Unverified 12/15/20 12:19 morphine AdvReac hallucinations/can't Unverified 12/15/20 12:19 talk cats Allergy Unknown Uncoded 12/15/20 12:19 perfumes Allergy Unknown Uncoded 12/15/20 12:19 General Stated Complaint: Abd Prob VISHNU: 3 Review of Systems Constitutional Constitutional: Denies fatigue, Denies fever(s) and Denies headache(s) ENT Ears, Nose, Mouth, and Throat: Denies headache(s) Cardiovascular Cardiovascular: Denies chest pain and Denies dyspnea Respiratory Respiratory: Denies cough and Denies dyspnea Gastrointestinal Gastrointestinal: Reports abdominal pain, Denies constipation, Denies diarrhea, Reports nausea (Occasional) and Denies vomiting Genitourinary Genitourinary: Denies dysuria Musculoskeletal Musculoskeletal: Denies back pain Integumentary/Breasts Skin/Breast: Denies rash Neurologic Neurologic: Denies headache(s) Endocrine Endocrine: Denies fatigue PFSH Medical History Bilateral cataracts Hx of substance abuse Menopause Other acquired deformities of left foot Hyperpronation syndrome Pain, joint, ankle, left Seasonal allergies Surgical History History of ankle surgery x6 Social History Smoking/Tobacco Use Status: Former Tobacco Use Smoking risk assessment performed?: Yes Alcohol Intake: current Alcohol Intake frequency: holidays/special occasions only Alcohol type: wine and hard liquor Drug use: Current Sobriety Household members: significant other Housing: house Number of Children: 4 number of grandchildren: 2 current occupation: Retired from nursing What is your relationship status?: living with partner Panel score (0-1 are the most socially isolated patients): 1 What type of physical activity do you participate in: bicycling and swimming Duration: 30-45 minutes/day Frequency: 3-4 times per week Do you feel safe in your relationship?: Yes Exam Const General: cooperative, healthy appearing, comfortable and no acute distress Orientation: alert, awake and oriented x3 HENMT Head: normal to inspection, normocephalic and atraumatic Face and sinus: normal facial exam Mouth: moist mucous membranes Eyes General: appearance normal, both eyes and all related structures Conjunctivae: conjunctivae normal Sclera: sclerae normal Neck Neck: normal visual inspection, full ROM, trachea midline and supple Resp Effort & Inspection: normal respiratory effort and able to speak in complete sentences Auscultation: clear to auscultation bilaterally Cardio Rate: regular rate Rhythm: regular rhythm GI Inspection: normal to inspection Palpation: soft, not firm, no guarding, no pulsatile masses and tender in the epigastrum (Minimal discomfort) and in the RUQ (Minimal discomfort); Dahl's sign negative Auscultation: normal bowel sounds Back/Spine/Pelvis Back: No back tenderness Skin General skin exam: no rashes or lesions noted Neuro General: patient alert, patient awake, moves all extremities and no focal motor deficits Cognition: normal cognition Speech: speech normal Gait: normal gait Sensory Exam: no sensory deficits noted Extrem General: normal to inspection and full ROM Psych Appearance: grossly normal Mental Status: mental status grossly normal Course Vital Signs Vital signs: Vital Signs Temperature 36.7 C 12/15/20 12:15 Pulse 114 H 12/15/20 12:15 Respiratory Rate 16 12/15/20 12:15 Blood Pressure 144/92 H 12/15/20 12:15 Pulse Oximetry 93 12/15/20 12:15 Temperature 36.7 C 12/15/20 12:15 Temperature Source Skin 12/15/20 12:15 Pulse 114 H 12/15/20 12:15 Respiratory Rate 16 12/15/20 12:15 Respiratory Effort Non-Labored 12/15/20 12:15 Blood Pressure 144/92 H 12/15/20 12:15 Blood Pressure Position Sitting 12/15/20 12:15 Pulse Oximetry 93 12/15/20 12:15 Pain Level 3 12/15/20 12:15 Lab/Test Results Lab/Test Results: Laboratory Tests Range/Units 12/15/20 12/15/20 12/15/20 12:30 12:30 12:30 WBC (4.4-10.8) 10^3/uL RBC (3.93-5.22) 10^6/uL Hgb (11.2-15.7) g/dL Hct (36.0-46.0) % MCV (80-95) fL MCH (27.0-33.0) pg MCHC (32.0-36.0) % RDW (11.7-14.6) % Plt Count (130-400) 10^3/uL MPV (8.0-11.0) fL Immature Gran % Neutrophils % Lymphocytes % Monocytes % Eosinophils % Basophils % Nucleated RBC % % Absolute Neutrophils (1.2-6.7) 10^3/uL Absolute Lymphocytes (1.2-3.4) 10^3/uL Absolute Monocytes (0.1-0.8) 10^3/uL Absolute Eosinophils (0.0-0.7) 10^3/uL Absolute Basophils (0.0-0.2) 10^3/uL VBG Lactate (0.6-1.4) mmol/L 2.4 H* Sodium (136-145) mmol/L 135 L Potassium (3.5-5.1) mmol/L 4.2 Chloride (98-107) mmol/L 97 L Carbon Dioxide (21.0-32.0) mmol/L 24.8 Anion Gap (3-11) mmol/L 13.2 H BUN (7-18) mg/dL 12 Creatinine (0.55-1.02) mg/dL 0.7 Estimated GFR/1.73 m2 (mL/min/1.73m2) >= 60.00 Glucose (74-106) mg/dL 105 Calcium (8.5-10.1) mg/dL 9.2 Total Bilirubin (0.2-1.0) mg/dL 0.6 AST (15-37) U/L 42 H ALT (14-59) U/L 84 H Alkaline Phosphatase (46-116) U/L 114 Total Protein (6.4-8.2) g/dL 7.8 Albumin (3.4-5.0) g/dL 3.9 Lipase (73-393) U/L 67 Urine Color (Yellow) Yellow Urine Clarity (Clear) Sl cloudy Urine pH (5-8) 5.5 Ur Specific [place] (1.005-1.025) 1.025 Urine Protein (Negative) mg/dL Negative Urine Ketones (Negative) mg/dL 15 H Urine Blood (Negative) Trace-intact H Urine Nitrite (Negative) Negative Urine Bilirubin (Negative) Negative Urine Urobilinogen (Up TO 0.2) EU/dL 1.0 H Ur Leukocyte Esterase (Negative) Negative Urine RBC (0-2) HPF 0-2 Urine WBC (0-5) HPF 3-5 Ur Epithelial Cells (Negative) HPF Many Urine Crystals (Negative) HPF Negative Urine Bacteria (Negative) HPF Few Urine Casts (Negative) LPF Negative Urine Mucus (Negative) Negative Ur Culture Indicated? No/sq. contamination Urine Glucose (Negative) mg/dL Negative Range/Units 12/15/20 12:30 WBC (4.4-10.8) 10^3/uL 8.23 RBC (3.93-5.22) 10^6/uL 4.48 Hgb (11.2-15.7) g/dL 13.3 Hct (36.0-46.0) % 39.5 MCV (80-95) fL 88.2 MCH (27.0-33.0) pg 29.7 MCHC (32.0-36.0) % 33.7 RDW (11.7-14.6) % 13.6 Plt Count (130-400) 10^3/uL 380 MPV (8.0-11.0) fL 8.7 Immature Gran % 0.4 Neutrophils % 64.8 Lymphocytes % 25.3 Monocytes % 6.8 Eosinophils % 1.5 Basophils % 1.2 Nucleated RBC % % 0 Absolute Neutrophils (1.2-6.7) 10^3/uL 5.34 Absolute Lymphocytes (1.2-3.4) 10^3/uL 2.08 Absolute Monocytes (0.1-0.8) 10^3/uL 0.56 Absolute Eosinophils (0.0-0.7) 10^3/uL 0.12 Absolute Basophils (0.0-0.2) 10^3/uL 0.10 VBG Lactate (0.6-1.4) mmol/L Sodium (136-145) mmol/L Potassium (3.5-5.1) mmol/L Chloride (98-107) mmol/L Carbon Dioxide (21.0-32.0) mmol/L Anion Gap (3-11) mmol/L BUN (7-18) mg/dL Creatinine (0.55-1.02) mg/dL Estimated GFR/1.73 m2 (mL/min/1.73m2) Glucose (74-106) mg/dL Calcium (8.5-10.1) mg/dL Total Bilirubin (0.2-1.0) mg/dL AST (15-37) U/L ALT (14-59) U/L Alkaline Phosphatase (46-116) U/L Total Protein (6.4-8.2) g/dL Albumin (3.4-5.0) g/dL Lipase (73-393) U/L Urine Color (Yellow) Urine Clarity (Clear) Urine pH (5-8) Ur Specific [place] (1.005-1.025) Urine Protein (Negative) mg/dL Urine Ketones (Negative) mg/dL Urine Blood (Negative) Urine Nitrite (Negative) Urine Bilirubin (Negative) Urine Urobilinogen (Up TO 0.2) EU/dL Ur Leukocyte Esterase (Negative) Urine RBC (0-2) HPF Urine WBC (0-5) HPF Ur Epithelial Cells (Negative) HPF Urine Crystals (Negative) HPF Urine Bacteria (Negative) HPF Urine Casts (Negative) LPF Urine Mucus (Negative) Ur Culture Indicated? Urine Glucose (Negative) mg/dL
[2020-12-15] MEDS: Omnipaque 350 MG/ML 100 ML BTL IJ (14:16)
[2020-12-15] MEDS: Normal Saline - Diluent 50 ML VIAL IV (14:17)
[2020-12-15] MEDS: Normal Saline Flush 10 ML SYR IVP (14:17)
--- NOTE | 2020-12-15 14:30 | DI.CT_ITS ---
EXAM: CT ABDOMEN PELVIS W CLINICAL HISTORY: RUQ pain x 1 month, lactate 2.4. TECHNIQUE: Imaging Protocol: Axial computed tomography images with coronal and sagittal reformatted images were created and reviewed CONTRAST MATERIAL: Intravenous: Omnipaque 350 Contrast volume:100 cc Oral: / no COMPARISON: No exams were available for comparison FINDINGS: ABDOMEN: Lung Bases: Normal where visualized. Liver: Enlarged. Moderate hepatic steatosis.. No measurable mass. Gallbladder and biliary tract: No radiodense calculus or dilation. Pancreas: Normal density, no abnormal calcifications or inflammatory process. Spleen: Normal. Kidneys: Normal size, contour and axis. No radiodense stones or obstructive uropathy. No masses seen. Adrenal glands: No masses seen. Abdominal Aorta: Abdominal portion non-dilated. [id number] calcification. PELVIS: Bladder: Symmetric distention, no gross wall thickening. Bowel: Diverticulosis descending and sigmoid colon. Moderate quantity of stool. No obstruction or b owel wall thickening. Status post appendectomy. High-density material in the cecum, presumably ing ested tablets. Peritoneal cavity: No ascites, collection or mesenteric inflammatory response. Bones: Scoliosis and degenerative changes. Reproductive organs: Within normal limits. Lymph nodes: Unremarkable. Impression: Unremarkable CT scan of the abdomen and pelvis. RADIATION DOSE DELIVERED: 1,186.96mGy.cm Total DLP DATA REPOSITORY: All CT scans at this facility are submitted to the National Radiology Data Registry (NRDR) Dose Index Registry (DIR) with the [employer] (A[employer]). RADIATION OPTIMIZATION: All CT scans at this facility use at least one of these dose optimization te chniques: automated exposure control; mA and/or kV adjustment per patient size (includes targeted exa ms where dose is matched to clinical indication); or iterative reconstruction.
[2020-12-15 14:58] LABS: Lactate 0.8 mmol/L (0.6-1.4)
[2020-12-15 16:01] VITALS: BP 126/87; PULSE 82; RESP 16; TEMP 36.8; O2SAT 100
== END 2020-12-15 15:55 | disposition home or self-care (01) ==
PROVIDERS: Emergency Provider Physician Assistant; PCP Nurse Practitioner
DX: R10.13 Epigastric pain (principal); R10.11 Right upper quadrant pain
CPT/HCPCS: 36415; 80053; 83690; 96360; 96361; 99285; 74177; 81003; 81015; 83605; 85025; 99284; J3490

== ENCOUNTER 2021-03-13 03:04 | Outpatient (CLI) | payer MEDICAID, SELFPAY ==
[2021-03-13 10:25] LABS: Source Nasal/Nares
[2021-03-13 12:28] LABS: COVID-19 PCR Negative (Negative)
== END 2021-03-13 03:05 | disposition home or self-care (01) ==
LOC: LBO 03:04
PROVIDERS: PCP Nurse Practitioner; Visit Provider Surgery
DX: Z20.822 Contact with and (suspected) exposure to COVID-19 (principal); Z01.818 Encounter for other preprocedural examination
CPT/HCPCS: 87635

== ENCOUNTER 2021-03-15 09:22 | Day surgery (SDC) | payer MEDICAID, SELFPAY ==
--- NOTE | 2021-03-15 06:42 | HPE_ITS ---
Date of service: 03/15/21 Time of Service: 10:14 History of Present Illness Narrative: 61 y/o female with history of hyperlipidemia and constipation presents for colonoscopy screening pre-op. Patient reports that since 2020 she has been having more frequent constipation, going at times over a week and half between BMs. She states she completed a bowel prep/cleanse from her PCP which has improved her symptoms. She states that since that time she has been eating quinoa, lentils and vegetables which seems to be keeping her regular. She reports that her bowels have returned to normal. Symptoms that persist include upset stomach. She has difficulty describing what that feels like. Nothing taste good. She denies nausea or vomiting. She denies a family history of colon cancer. She denies bloody or black tarry stools, abdominal pain or diarrhea. She denies constitutional symptoms. Denies use of marijuana or any other recreational or illegal drugs. She reports that she has recently had surgery on her ankle and has had residual nerve pain, which has greatly impacted her physical activity level and she feels this may be a factor in her increase in constipation. She denies chest pain, palpitations, dyspnea or dyspnea with exertion. She denies prior history or family history of adverse reactions or complications with anesthesia. She reports concern for potentially having Factor V Leiden, because 3 of her children have this, and they have different fathers. She has never been tested. Denies any history of blood clots or complications with her pregnancies. The patient denies any history of stroke, VA, seizures, bleeding. She has metal implanted in her left ankle. There have been no changes in her health since she was last seen in the office Review of Systems Cardiovascular Cardiovascular: Denies chest pain, Denies chest pain at rest, Denies irregular heart rhythm, Denies dyspnea and Denies dyspnea on exertion Respiratory Respiratory: Denies cough, Denies dyspnea and Denies dyspnea on exertion Gastrointestinal Gastrointestinal: Reports as per HPI Genitourinary Genitourinary: Denies dysuria, Denies urinary incontinence and Denies urinary urgency Endocrine Endocrine: Reports system reviewed and no additional complaints, except as documented Hematologic/Lymphatic Hematologic/Lymphatic: Denies easy bruising and Denies lymphadenopathy FOR[facility]LY [facility] Medical History Bilateral cataracts Bilateral lower extremity edema Dry eyes Dry mouth Hx of substance abuse Menopause Other acquired deformities of left foot Hyperpronation syndrome Pain, joint, ankle, left Seasonal allergies Surgical History (Updated 03/15/21 @ 09:41 by Sandra Azul RN) History of ankle surgery x6 History of appendectomy (~2006) History of cataract surgery bilat w/ lenses Social History Smoking/Tobacco Use Status: Former Tobacco Use Quit Date: 11/04/10 Smoking risk assessment performed?: Yes Alcohol Intake: current Alcohol Intake frequency: holidays/special occasions only Alcohol type: wine and hard liquor Drug use: Current Sobriety Substance use type: opiates Household members: significant other Housing: house Number of Children: 4 number of grandchildren: 2 current occupation: Retired from nursing What is your relationship status?: living with partner Panel score (0-1 are the most socially isolated patients): 1 What type of physical activity do you participate in: bicycling and swimming Duration: 30-45 minutes/day Frequency: 3-4 times per week Do you feel safe at home: Yes Do you feel safe in your relationship?: Yes Meds Allergies and Home Medications Allergies Allergy/AdvReac Type Severity Reaction Status Date / Time naproxen sodium [From Aleve] Allergy Intermediate Hives Unverified 03/15/21 09:42 house dust Allergy Unknown Verified 03/15/21 09:42 adhesive AdvReac Mild Blistering Unverified 03/15/21 09:42 morphine AdvReac hallucinations/can't Unverified 03/15/21 09:42 talk cats Allergy Unknown Uncoded 03/15/21 09:42 perfumes Allergy Unknown Uncoded 03/15/21 09:42 Home Medications Medication Instructions Recorded Confirmed Type gabapentin 300 mg capsule 900 mg PO TID #270 tab-cap 09/23/18 03/15/21 Rx acetaminophen 1,000 mg PO Q8H PRN #90 cap 10/14/18 03/15/21 Rx ibuprofen 600 mg PO TID PRN #90 tab 10/14/18 03/15/21 Rx Calcium with Vitamin D 1 tab PO DAILY 02/23/19 03/15/21 History buprenorphine 8 mg-naloxone 2 mg 1 film SL DAILY 02/23/19 03/15/21 History sublingual film multivitamin 1 tab PO DAILY 02/23/19 03/15/21 History albuterol sulfate 90 mcg/actuation 2 puff INHALATION Q6H PRN 12/23/20 03/15/21 History aerosol inhaler mometasone 50 mcg/actuation nasal 2 spray INTRANASAL DAILY 12/23/20 03/15/21 History spray bisacodyl 5 mg tablet,delayed 5 mg PO ONCE #4 tab 01/26/21 03/15/21 Rx release polyethylene glycol 3350 17 238 g PO ONCE #238 g 01/26/21 03/15/21 Rx gram/dose oral powder Exam Const General: healthy appearing and comfortable Resp Effort & Inspection: normal respiratory effort Auscultation: clear to auscultation bilaterally Cardio Rate: regular rate Rhythm: regular rhythm Heart Sounds: no click, no gallops and no murmurs
--- NOTE | 2021-03-15 06:45 | W.PM.ENDDOP ---
Date of service: 03/15/21 Time of Service: 11:35 Endoscopy Report DATE OF PROCEDURE: 03/15/21 PRE-OP DIAGNOSIS: changes in bowel habits and abdominal pain POST-OP DIAGNOSIS: other (Peptic duodenitis, gastritis and esophagitis, hiatal hernia, diverticulosis and colon polyps) PROCEDURE: 1. EGD with biopsies 2. Colonoscopy with polypectomy SURGEON: Lexus Saba ANESTHESIA TYPE: General:No Airway (ASA 2/ Abril Jeffery, KATHLEEN) ESTIMATED BLOOD LOSS: 3 PATHOLOGY: other (Rectal polyps, duodenal, antral and GE junction bx) COMPLICATIONS: None DISPOSITION: same day INDICATIONS: 61 y/o female with history of hyperlipidemia and constipation presents for colonoscopy screening pre-op. Patient reports that since 2020 she has been having more frequent constipation, going at times over a week and half between BMs. She states she completed a bowel prep/cleanse from her PCP which has improved her symptoms. She states that since that time she has been eating quinoa, lentils and vegetables which seems to be keeping her regular. She reports that her bowels have returned to normal. Symptoms that persist include upset stomach. She has difficulty describing what that feels like. Nothing taste good. She denies nausea or vomiting. She denies a family history of colon cancer. She denies bloody or black tarry stools, abdominal pain or diarrhea. She denies constitutional symptoms. Denies use of marijuana or any other recreational or illegal drugs. She reports that she has recently had surgery on her ankle and has had residual nerve pain, which has greatly impacted her physical activity level and she feels this may be a factor in her increase in constipation. She denies chest pain, palpitations, dyspnea or dyspnea with exertion. She denies prior history or family history of adverse reactions or complications with anesthesia. She reports concern for potentially having Factor V Leiden, because 3 of her children have this, and they have different fathers. She has never been tested. Denies any history of blood clots or complications with her pregnancies. The patient denies any history of stroke, MS, seizures, bleeding. She has metal implanted in her left ankle. PREP: Miralax/Dulcolax PROCEDURE START TIME: 10:29 PROCEDURE END TIME: 11:08 COLONOSCOPY RETRACTION TIME: 14 minutes FINDINGS: Upper- inflammation of the duodenum, stomach and esophagus. Hiatal Hernia Lower- diverticulosis and hyperplastic appearing rectal polyps PROCEDURE DESCRIPTION: After informed consent was obtained the patient was take to the procedure room and placed in a supine position. Monitors were applied and a time out was done. The patients name, date of , procedure type, allergies to medications and metal in their body was reviewed. A bite block was placed and the patient was sedated. Once sedated and comfortable the gastroscope was advanced through the oropharynx which was grossly normal into the esophagus. The proximal and mid-esophagus were normal. In the distal esophagus there was inflammation and scarring noted. The scope was advanced into the stomach and through the pylorus into the 3rd portion of the duodenum. The duodenum was noted to be inflammaed in the 1st and second portion. Biopsies were done. The scope was retracted back into the stomach. There was moderate inflammation noted in the antrum. Biopsies were done to rule out H. pylori. There were no ulcers. The scope was retro-flexed. The cardia and fundus were noted to be normal. There was a hiatal hernia noted. The scope was retracted back into the esophagus and biopsies were done of the GE junction to rule out Bonner's. The Z line was regular. The GE junction was at 35 cm. There was some scarring noted. While the patient was still sedated they were placed in a left decubitous position. A rectal exam was done. External exam was normal. Internal exam revealed a normal sphincter tone and no palpable masses. The scope was then introduced and retro-flexed. No internal hemorrhoids, masses or polyps were identified on retroflexion. The scope was then advanced to the cecum with some difficulty. The patient had to placed in a supine position. The ileocecal valve and appendiceal orifice were identified. The prep was adequate. The scope was then slowly retracted over 14 minutes back into the rectum. Polyps were removed with cold forceps in the rectum. There was moderate diverticulosis noted in the sigmoid colon. The scope was removed and the patient was woken up and taken back to Same day surgery in stable condition. The patient tolerated the procedure well and there were no immediate complications. Follow up: in the office in 2 weeks
--- NOTE | 2021-03-15 06:46 | PDOC.DSDIS_ITS ---
Discharge Plan Disposition Patient Disposition: HOME Condition: Good Discharge Details Reason For Visit: abdominal pain and change in bowel habits Attending Provider: Lexus Saba Primary Care Provider: Ronel Pike Home Meds and New Rx's Prescriptions: New omeprazole 40 mg capsule,delayed release(DR/EC) 40 mg PO DAILY Qty: 30 RF: 5 Continued multivitamin tablet 1 tab PO DAILY RF: 0 Calcium with Vitamin D 1 tab PO DAILY RF: 0 buprenorphine-naloxone [Suboxone] 8-2 mg film 1 film SL DAILY RF: 0 gabapentin 300 mg capsule 900 mg PO TID Qty: 270 RF: 6 mometasone [Nasonex] 50 mcg/actuation spray,non-aerosol 2 spray intranasal DAILY RF: 0 albuterol sulfate [ProAir HFA] 90 mcg/actuation HFA aerosol inhaler 2 puff inhalation Q6H PRNRF: 0 acetaminophen 500 mg capsule 1,000 mg PO Q8H PRN (Reason: pain) Qty: 90 RF: 0 Discontinued bisacodyl [Dulcolax (bisacodyl)] 5 mg tablet,delayed release (DR/EC) 5 mg PO ONCE Qty: 4 RF: 0 polyethylene glycol 3350 17 gram/dose powder 238 g PO ONCE Qty: 238 RF: 0 ibuprofen 600 mg tablet 600 mg PO TID PRNQty: 90 RF: 3 Discharge Instructions Instructions: Diet for Stomach Ulcers and Gastritis (ED), Duodenitis (DC), Gastritis (DC), Esophagitis (DC), Diverticulosis (DC), Colorectal Polyps (DC) Additional Instructions: Findings: Inflammation in the stomach, esophagus and small bowel 3 polyps in the rectum Diverticulosis Follow up: 2 weeks in the office Please call if you develop: fevers >101.5 Nausea or Vomiting Abdominal pain that is not transient Rectal bleeding that is more then a tbsp A hard abdomen and inability to pass gas DAY SURGERY UNIT POST ENDOSCOPY INSTRUCTIONS Instructions for everyone who is given Anesthesia: For your safety, please do the following for the next 24 Hours: a. Do not drive or operate dangerous equipment b. Do not drink alcohol beverages or use any recreational drugs for the first 24 hours or while taking pain medications. The medications in your body may have a reaction that can be dangerous. c. Do not make any important decisions or sign any important papers 1. Generally there are no restrictions on your activity after a day or so has gone by, but you may feel a bit fatigued for a few days. 2. After you arrive home you may have a light meal and return to a normal diet as you can tolerate it without feeling sick to your stomach. 3. After surgery, you may feel pain or discomfort. This should be only tra nsient, but if it persists please contact your doctor. 4. If there are any questions regarding the findings of your procedure, please feel free to contact your doctor. 6. If you are unable to contact your doctor with a problem, contact the hospital at [phone]. 7. Continue all your regular medications unless directed otherwise. I understand the above instructions and have no questions. Signature of Patient or Responsible Adult Escort Date/Time Name of Responsible Adult Escort Signature of Nurse Date/Time Referrals: Lexus Saba MD [ [facility] STAFF PHYSICIAN] - 03/31/21 9:00 am Activity:: Activity as Tolerated Diet:: High fiber Discharge Orders Discharge Orders: Discharge Order (Routine); Ordered 03/15/21 Ordered By: Lexus Saba
[2021-03-15 09:30] VITALS: BP 114/74; PULSE 81; RESP 18; TEMP 36.5; O2SAT 97
[2021-03-15] MEDS: Lactated Ringers 1,000 ML 80 ML IV (09:57)
--- NOTE | 2021-03-15 09:57 | W.ANESPRE ---
General Info Date of Service Date Performed: 03/15/21 Height: 5 ft 1.5 in Weight: 83 kg Body Mass Index (BMI): 34.0 Surgical Procedure: Operation Date: 03/15/21 10:50 Proposed Procedures Side Surgeon p Colonoscopy/Gastroscopy Lexus Saba MD Meds Allergies and Home Medications Allergies Allergy/AdvReac Type Severity Reaction Status Date / Time naproxen sodium [From Aleve] Allergy Intermediate Hives Unverified 03/15/21 09:42 house dust Allergy Unknown Verified 03/15/21 09:42 adhesive AdvReac Mild Blistering Unverified 03/15/21 09:42 morphine AdvReac hallucinations/can't Unverified 03/15/21 09:42 talk cats Allergy Unknown Uncoded 03/15/21 09:42 perfumes Allergy Unknown Uncoded 03/15/21 09:42 Home Medication Medication Instructions Recorded gabapentin 300 mg capsule 900 mg PO TID #270 tab-cap 09/23/18 acetaminophen 1,000 mg PO Q8H PRN #90 cap 10/14/18 ibuprofen 600 mg PO TID PRN #90 tab 10/14/18 Calcium with Vitamin D 1 tab PO DAILY 02/23/19 buprenorphine 8 mg-naloxone 2 mg 1 film SL DAILY 02/23/19 sublingual film multivitamin 1 tab PO DAILY 02/23/19 albuterol sulfate 90 mcg/actuation 2 puff INHALATION Q6H PRN 12/23/20 aerosol inhaler mometasone 50 mcg/actuation nasal 2 spray INTRANASAL DAILY 12/23/20 spray bisacodyl 5 mg tablet,delayed 5 mg PO ONCE #4 tab 01/26/21 release polyethylene glycol 3350 17 238 g PO ONCE #238 g 01/26/21 gram/dose oral powder Current Visit Medications: Current Medications Generic Name Dose Route Start Last Admin Trade Name Freq PRN Reason Stop Dose Admin Hyoscyamine Sulfate 0.125 mg 03/15/21 06:47 Hyoscyamine 0.125 Mg Sl/Oral/Chew SL DIRECTED PRN Ringer's Solution 1,000 mls @ 80 mls/hr 03/15/21 06:00 IV 04/13/21 23:59 INFUSION JARED IV Miscellaneous Supplies 1 each 03/15/21 06:00 Iv Access IV 04/13/21 23:59 DIRECTED JARED Ondansetron HCl 4 mg 03/15/21 06:47 Ondansetron 4 Mg/2 Ml Vial IVP Q4H PRN PRN Nausea / Vomiting Sodium Chloride 0 ml 03/15/21 06:00 Normal Saline Flush 10 Ml Syr IV 04/13/21 23:59 PRN PRN Sodium Chloride 0 ml 03/15/21 06:00 Normal Saline 10 Ml Vial IJ 04/13/21 23:59 DIRECTED PRN Sterile Water 0 ml 03/15/21 06:00 Water,Injection,Sterile 10 Ml Vial IJ 04/13/21 23:59 DIRECTED PRN Allergy/Medication Comments:: No recent inhaler use PFSH Active Problems Active Problems: Problem Status Onset Code Acute right ankle pain 04/30/16 M25.571 Metatarsalgia of left foot 12/18/17 M77.42 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 Posterior tibial tendon dysfunction (PTTD) of left lower extremity 08/20/16 M76.822 Trigger thumb of left hand 12/18/17 M65.312 Fracture of fifth metatarsal bone of left foot S92.352A Constipation K59.00 Hyperlipidemia E78.5 Medical History Medical History Bilateral cataracts Bilateral lower extremity edema Dry eyes Dry mouth Hx of substance abuse Menopause Other acquired deformities of left foot Hyperpronation syndrome Pain, joint, ankle, left Seasonal allergies Surgical History Surgical History (Updated 03/15/21 @ 09:41 by Sandra Azul RN) History of ankle surgery x6 History of appendectomy (~2006) History of cataract surgery bilat w/ lenses Tobacco Smoking/Tobacco Use Status: Former Tobacco Use Alcohol Alcohol Intake: current Alcohol intake frequency: holidays/special occasions only Alcohol type: wine and hard liquor Substance Use Substance use: Current Sobriety Substance use type: opiates Vital Signs and Lab Results Vital Signs Most Recent Vital Signs in EMR: Most Recent Vital Signs Temp Pulse Resp BP Pulse Ox 36.5 C 81 18 114/74 97 03/15/21 09:30 03/15/21 09:30 03/15/21 09:30 03/15/21 09:30 03/15/21 09:30 Lab Results Blood Type / Crossmatch: No Data to Display Complete Blood Count: White Blood Count 8.23 10^3/uL (4.4-10.8) 12/15/20 12:30 12/15/20 Red Blood Count 4.48 10^6/uL (3.93-5.22) 12/15/20 12:30 12/15/20 Hemoglobin 13.3 g/dL (11.2-15.7) 12/15/20 12:12/15/20 Hematocrit 39.5 % (36.0-46.0) 12/15/20 12:12/15/20 Platelet Count 380 10^3/uL (130-400) 12/15/20 12:12/15/20 Complete Metabolic Panel: Sodium Level 135 mmol/L (136-145) L 12/15/20 12:12/15/20 Potassium Level 4.2 mmol/L (3.5-5.1) 12/15/20 12:12/15/20 Chloride Level 97 mmol/L (98-107) L 12/15/20 12:12/15/20 Carbon Dioxide Level 24.8 mmol/L (21.0-32.0) 12/15/20 12:30 12/15/20 Blood Urea Nitrogen 12 mg/dL (7-18) 12/15/20 12:12/15/20 Creatinine 0.7 mg/dL (0.55-1.02) 12/15/20 12:12/15/20 Calcium Level 9.2 mg/dL (8.5-10.1) 12/15/20 12:12/15/20 Albumin 3.9 g/dL (3.4-5.0) 12/15/20 12:12/15/20 Glucose Level 105 mg/dL (74-106) 12/15/20 12:12/15/20 C-Reactive Protein 7.83 mg/dL (0.0-0.3) H 04/24/16 13:20 04/24/16 Liver Function Panel: Alanine Aminotransferase (ALT/SGPT) 84 U/L (14-59) H 12/15/20 12:30 12/15/20 Aspartate Amino Transf (AST/SGOT) 42 U/L (15-37) H 12/15/20 12:30 12/15/20 Coagulation Panel: No Data to Display Cardiac Panel: No Data to Display Arterial Blood Gas: No Data to Display Venous Blood Gas: Venous Blood Lactate 0.8 mmol/L (0.6-1.4) 12/15/20 14:55 12/15/20 Pancreas Panel: Lipase 67 U/L (73-393) 12/15/20 12:30 12/15/20 Thyroid Panel: Thyroid Stimulating Hormone (TSH) 0.94 uIU/mL (0.36-3.74) 04/27/20 12:15 04/27/20 Infectious Disease: Coronavirus (COVID-19)(PCR) Negative (Negative) 03/13/21 08:28 03/13/21 Coronavirus 2019 Source Nasal/nares 03/13/21 08:28 03/13/21 Hepatitis C Antibody Negative (NEGAT) 08/20/18 09:31 08/20/18 Blood Cultures: No Data to Display Toxicology Panel: No Data to Display Anesthesia Assessment and Plan Anesthesia History Personal History: No History of Anesthesia Complications Family History: No Family History of Anesthesia Complications Exercise Tolerance Exercise Tolerance: Metabolic Equivalents>4 Pertinent Negatives Pertinent Negatives: No Symptoms of GERD, No Major Cardiovascular Symptoms or Complaints and No Major Pulmonary Symptoms or Complaints Cardiac & Pulmonary Exam Cardiac Exam: Normal S1/S2 Heart Sounds Pulmonary Exam: Clear Bilateral Breath Sounds Airway Exam Known Difficult Airway: No Mallampati Class: 1 Mouth Opening: Normal (> 3cm) Thyromental Distance: Greater than 3 cm Neck Range of Motion: Full ROM Neck Circumference: Normal Teeth Condition: Normal Dentition and Loose or Chipped (Bottom right molar broken, not loose) ASA Classification ASA Score: ASA 2 Emergency Case?: No NPO Status NPO Status: NPO Clears >2 hours, Solids >8 hours Anesthesia Plan Anesthesia Technique: General Anesthesia Airway Planned: Natural Airway Monitors Used: Standard Monitors
[2021-03-15 10:04] VITALS: BMI 34.0
--- NOTE | 2021-03-15 10:30 | BOWEL_PTH ---
PATIENT: Nakita Medeiros LOC: [facility] U#:[id number] AGE/SX: 61/F ROOM: RE03/15/[address]: Lexus Saba MD : 1960 BED: DIS: 03/15/2021 SPEC #: [id number] RECD: 03/15/21 12:42 STATUS: JAYANT REQ #: [id number] CLARK: 03/15/21 10:[address]: Lexus Saba DEPT: Surgical Specimen RECD BY: Jolie Moran ENTERED: 03/15/21 12:42 SP TYPE: Bowel OTHR DR: Ronel Pike Tissues: 1 - BIOPSY BOWEL 2 - STOMACH BIOPSY 3 - ESOPHAGUS BIOPSY 4 - BIOPSY BOWEL Procedures: GROSS AND MICRO LEVEL 4 Comments: [id number]
--- NOTE | 2021-03-15 11:14 | W.ANESPOSTOP ---
Postoperative Evaluation Date, Time and Location Date Performed: 03/15/21 Time Performed: 11:15 Patient Location: Day Surgery Unit Vital Signs Most Recent Imported Vital Signs: Most Recent Vital Signs Temp Pulse Resp BP Pulse Ox 36.5 C 81 18 114/74 97 03/15/21 09:30 03/15/21 09:30 03/15/21 09:30 03/15/21 09:30 03/15/21 09:30 Most Recent Manually Entered Vital Signs: Adult Blood Pressure: 111/76 Heart Rate: 77 Respirations: 20 Oxygen Saturation (%): 95 Temperature (C): 36.4 C Pain Score (0-10 Scale): 6 Pain Score Most Recent Pain Score: Most Recent Pain Score Pain Level 0 03/15/21 09:30 Assessment Mental Status: Awake (Alert & Oriented to Patient Baseline) Airway and Respiratory Function: Patent airway with normal (patient baseline) respiratory exam Cardiovascular Function: Hemodynamically Stable Hydration Status: Adequately Hydrated Nausea & Vomiting: No Nausea or Vomiting Pain: Pain is Moderate or Severe (Passing gas) Postoperative Pain Management: Other Peripheral Nerve Block: Patient did not receive a nerve block
[2021-03-15 11:17] VITALS: BP 111/76; BP 114/74; PULSE 77; PULSE 81; RESP 16; RESP 20; TEMP 36.4; TEMPC 36.4; O2SAT 95; O2SAT 97
[2021-03-15 11:46] VITALS: BP 110/38; PULSE 66; RESP 16; TEMP 36.5; O2SAT 98
== END 2021-03-15 12:20 | disposition home or self-care (01) ==
LOC: SUR 09:22
PROVIDERS: PCP Nurse Practitioner; Visit Provider Surgery
PROC: (CPT 45380; principal; 2021-03-15 10:45)
DX: R19.5 Other fecal abnormalities (principal); R10.9 Unspecified abdominal pain; K57.30 Diverticulosis of large intestine without perforation or abscess without bleeding; K29.80 Duodenitis without bleeding; K31.89 Other diseases of stomach and duodenum; K62.1 Rectal polyp
CPT/HCPCS: 45380; 43239; 88305; J2001

== ENCOUNTER 2021-05-30 14:01 | Outpatient (REF) | payer OTHER, MEDICAID, SELFPAY ==
[2021-05-30 21:42] LABS: ALT 73 U/L (14-59); AST 61 U/L (15-37); Albumin 3.7 g/dL (3.4-5.0); Alkaline Phosphatase 106 U/L (46-116); Bilirubin, Direct 0.1 mg/dL (0.0-0.2); Bilirubin, Total 0.4 mg/dL (0.2-1.0); Total Protein 6.8 g/dL (6.4-8.2)
[2021-05-30 21:56] LABS: Calculated LDL 142 mg/dL (<100); Cholesterol 245 mg/dL (<200); HDL Cholesterol 56 mg/dL (40-60); Triglyceride 236 mg/dL (<150)
== END 2021-05-30 14:02 | disposition home or self-care (01) ==
LOC: NCHCN 14:01
PROVIDERS: PCP Nurse Practitioner; Visit Provider Nurse Practitioner
DX: K76.0 Fatty (change of) liver, not elsewhere classified (principal); R79.89 Other specified abnormal findings of blood chemistry
CPT/HCPCS: 80061; 80076

== ENCOUNTER → 2023-07-26 01:08 | Outpatient (CLI) | payer OTHER, MEDICAID, SELFPAY ==
--- NOTE | 2023-07-26 07:43 | DI.MAMMO_ITS ---
Exam(s) MAMMO SCREENING EXAM: MAMMO SCREENING CLINICAL HISTORY: SCREENING MAMMO Z12.31 TECHNIQUE: Mammograms were interpreted according to the usual protocol including computer analysis w [employer] CAD system, tomosynthesis and C-view imaging. COMPARISON: 2014 through 2020 FINDINGS: The breasts are composed of mainly fatty density , Breast Density category A. No suspicious masses or suspicious microcalcifications are seen. No skin thickening or abnormal axillary lymph nodes are seen. There has been no significant change from prior exams. IMPRESSION: BI-RADS Category 1, Negative mammogram Yearly screening mammography is recommended. Breast Density - Category A, fatty density. A negative radiographic report should not delay biopsy if a dominant or clinically suspicious mass is present. Up to ten percent of cancers are not identified on mammography. A negative report may reinforce clinical impression. Adenosis and dense breasts may obscure an underlying neoplasm. False positive reports average 6 to 10%. Patient will receive a letter notifying them of these results.
== END ==
PROVIDERS: PCP Nurse Practitioner; Visit Provider Nurse Practitioner
DX: Z12.31 Encounter for screening mammogram for malignant neoplasm of breast (principal)
CPT/HCPCS: 77063; 77067

== ENCOUNTER 2024-02-08 15:34 | Emergency (ER) | payer OTHER, SELFPAY ==
[2024-02-08] VITALS (20 sets, daily range): BP systolic 128–182; BP diastolic 64–123; PULSE 81–138; RESP 11–30; TEMP 36.4; O2SAT 96–100
--- NOTE | 2024-02-08 15:30 | DI.RAD_ITS ---
Exam(s) XR ANKLE LT COMPLETE EXAM: XR ANKLE LT COMPLETE CLINICAL HISTORY: fall. TECHNIQUE: 2D digital imaging was performed. COMPARISON: Prior x-rays 01/23/2017. FINDINGS: 3 views There is a displaced fracture of the medial malleolus with partial dislocation of the tibiotalar join t. Some widening of the ankle mortise. Talar dome unremarkable. Again noted is fusion hardware across the subtalar joint and talonavicular and calcaneocuboid joint. IMPRESSION: Medial malleolus ankle fracture. Also some calcific density in the space between the distal tibia an d fibula now evident probable syndesmotic injury. Hindfoot fusions again noted. DATA REPOSITORY: RADIATION DOSE DELIVERED:
--- NOTE | 2024-02-08 15:30 | DI.RAD_ITS ---
Exam(s) XR TIB/FIB LT EXAM: XR TIB/FIB LT CLINICAL HISTORY: fall. TECHNIQUE: 2D digital imaging was performed. COMPARISON: No exams were available for comparison FINDINGS: Two views. There is a moderately displaced fracture of the medial malleolus of the ankle with widening of the an kle mortise and subluxation of the tibiotalar joint. There is also an oblique midshaft fracture in the fibula without significant displacement. No other tibial fractures identified. IMPRESSION: Ankle level fracture as well as midshaft fracture of the fibula. Also see separate ankle images dict ation. DATA REPOSITORY: RADIATION DOSE DELIVERED:
--- NOTE | 2024-02-08 16:13 | ED.GENADUL_ITS ---
Discharge Plan Disposition Patient Disposition: Home Condition: Stable Discharge Details Clinical Impression: Fracture of shaft of left fibula, Fracture of medial malleolus of left tibia Primary Care Provider: Quin Belle ED Provider: Foster Goodman Home Meds and New Rx's Prescriptions: No Action multivitamin tablet 1 tab PO DAILY Calcium with Vitamin D 1 tab PO DAILY Patient Comments: 1200/1000 buprenorphine-naloxone [Suboxone] 8-2 mg film 1 film SL DAILY sucralfate [Carafate] 1 gram tablet 1 g PO QID Qty: 56 0RF Rx Instructions: Before meals and at bedtime gabapentin 300 mg capsule 900 mg PO TID Qty: 270 6RF mometasone [Nasonex] 50 mcg/actuation spray,non-aerosol 2 spray intranasal DAILY Rx Instructions: administer into each nostril albuterol sulfate [ProAir HFA] 90 mcg/actuation HFA aerosol inhaler 2 puff inhalation Q6H PRN omeprazole 40 mg capsule,delayed release(DR/EC) 40 mg PO DAILY Qty: 30 0RF acetaminophen 500 mg capsule 1,000 mg PO Q8H PRN (Reason: pain) Qty: 90 0RF Sublocade 100 mg/0.5 mL solution, extended rel syringe 100 mg SUBCUT QMONTH rosuvastatin 20 mg tablet 20 mg PO DAILY Patient Comments: TAKE ONE TABLET BY MOUTH EVERY DAY Discharge Instructions Instructions: Ankle Fracture (ED), Leg Fracture (ED) Additional Instructions: As discussed please take Tylenol as needed for pain. Please do not exceed 3 - 4000 mg in a 24-hour. If you develop any spasms you may use the limited supply of provided muscle relaxer. Please return the emergency department for any new or worsening of symptoms otherwise follow-up with Ortho Please use crutches and remain nonweightbearing until cleared Referrals: [facility] [Provider Group] (Please call the office on Saturday afternoon for arrangement of follow-up appointment) Discharge Data Discharge Date/Time-TO BE ENTERED AT DEPARTURE: 02/08/24 18:26 HPI General Mode of arrival: wheelchair . Date/Time Provider Initiated Documentation: 02/08/24 15:38 . Limitations to Documentation: no limitations . Information obtained by: patient and RN notes reviewed . History of Present Illness 64 year old F presents to the emergency department with the chief complaint of fall left ankle injury, described as moderate, and is localized to the left and lower extremity. Patient started experiencing this hour(s) (1) and it has been constant. No relieving factors improve symptom(s), No exacerbating factors reported . Patient notes no other symptoms.. Patient did receive the following treatments prior to arrival, none Related Data Home Medications Medication Instructions Recorded Confirmed gabapentin 300 mg capsule 900 mg (3 x 300 mg) PO TID #270 09/23/18 02/08/24 tab-caps acetaminophen 500 mg capsule 1,000 mg (2 x 500 mg) PO Q8H PRN 10/14/18 02/08/24 pain #90 caps Calcium with Vitamin D 1 tab PO DAILY 02/23/19 02/08/24 buprenorphine 8 mg-naloxone 2 mg 1 film sublingual DAILY 02/23/19 02/08/24 sublingual film (Suboxone) multivitamin 1 tab PO DAILY 02/23/19 02/08/24 albuterol sulfate 90 mcg/actuation 2 puff inhalation Q6H PRN 12/23/20 02/08/24 aerosol inhaler (ProAir HFA) mometasone 50 mcg/actuation nasal 2 spray intranasal DAILY 12/23/20 02/08/24 spray (Nasonex) sucralfate 1 gram tablet (Carafate) 1 g PO QID #56 tabs 03/31/21 02/08/24 omeprazole 40 mg capsule,delayed 40 mg PO DAILY #30 caps 09/05/21 02/08/24 release buprenorphine 100 mg/0.5 mL 100 mg subcut QMONTH 02/08/24 02/08/24 solution,exten.rel.subcutaneous syringe (Sublocade) rosuvastatin 20 mg tablet 20 mg PO DAILY 02/08/24 02/08/24 Previous Rx's Medication Instructions Recorded gabapentin 300 mg capsule 900 mg (3 x 300 mg) PO TID #270 09/23/18 tab-caps acetaminophen 500 mg capsule 1,000 mg (2 x 500 mg) PO Q8H PRN 10/14/18 pain #90 caps sucralfate 1 gram tablet (Carafate) 1 g PO QID #56 tabs 03/31/21 omeprazole 40 mg capsule,delayed 40 mg PO DAILY #30 caps 09/05/21 release Allergies Allergy/AdvReac Type Severity Reaction Status Date / Time naproxen sodium [From Aleve] Allergy Intermediate Hives Unverified 02/08/24 15:44 house dust Allergy Unknown Itching Verified 02/08/24 15:44 adhesive AdvReac Mild Blistering Unverified 02/08/24 15:44 morphine AdvReac hallucinations/can't Unverified 02/08/24 15:44 talk cats Allergy Unknown Skin Rash Uncoded 02/08/24 15:44 perfumes Allergy Unknown Itching Uncoded 02/08/24 15:44 General Stated Complaint: Orthopedic VISHNU: 3 Review of Systems Constitutional Constitutional: Denies headache(s) ENT Ears, Nose, Mouth, and Throat: Denies headache(s) Cardiovascular Cardiovascular: Denies chest pain, Denies syncope and Denies dyspnea Respiratory Respiratory: Denies dyspnea Gastrointestinal Gastrointestinal: Denies abdominal pain Musculoskeletal Musculoskeletal: Reports deformity, Reports arthralgias, Reports joint swelling, Reports limited range of motion, Denies numbness and Denies tingling Neurologic Neurologic: Denies syncope, Denies headache(s), Denies numbness and Denies tin gling Exam Const General: cooperative, no acute distress and not ill appearing Orientation: alert, awake and oriented x3 HENMT Mouth: moist mucous membranes Resp Effort & Inspection: normal respiratory effort, able to speak in complete sentences and no respiratory distress Auscultation: clear to auscultation bilaterally Cardio Rate: regular rate Rhythm: regular rhythm Heart Sounds: S1 normal and S2 normal Pulses: normal peripheral pulses Skin General skin exam: no rashes or lesions noted Neuro General: patient alert, patient awake, patient oriented x3, moves all extremities and no focal motor deficits Sensory Exam: no sensory deficits noted Extrem General: normal exam except as noted Left lower extremity: lower leg Details: tenderness Location: of the proximal fibula and of the midshaft fibula; no abrasions and no lacerations, ankle Details: abnormal to inspection (deformity), tenderness Location: of the medial malleolus, swelling Details: diffusely, abnormal ROM (no range of motion due to deformity and pain) and ecchymosis medial ; no abrasions and no lacerations and foot Details: normal capillary refill, normal to inspection, toes with normal ROM, vascular exam Details: dorsalis pedis pulse present and normal capillary refill and motor-sensory exam Details: light-touch normal Course Vital Signs Vital signs: Vital Signs Temperature 36.4 C L 02/08/24 15:35 Pulse 103 H 02/08/24 15:35 Respiratory Rate 22 02/08/24 15:35 Blood Pressure 165/94 H 02/08/24 15:35 Pulse Oximetry 99 02/08/24 15:35 Temperature 36.4 C L 02/08/24 15:35 Temperature Source Skin 02/08/24 15:35 Pulse 103 H 02/08/24 15:35 Respiratory Rate 22 02/08/24 15:35 Respiratory Effort Normal, Non-Labored 02/08/24 15:43 Blood Pressure 165/94 H 02/08/24 15:35 Blood Pressure Position Sitting 02/08/24 15:35 Pulse Oximetry 99 02/08/24 15:35 Oxygen Delivery Method Room Air 02/08/24 15:35 Oxygen Flow Rate 0 02/08/24 15:35 Pain Level 10 02/08/24 15:35 Procedures Orthopedic Fracture Reduction Fracture #1: Time Out Performed: Yes Side: left Fracture Reduction Location: tibia Analgesia: procedural sedation Technique: direct manipulation Post Reduction X-rays Demonstrate: acceptable reduction Post-reduction neuro exam: intact and no change Post-reduction vascular exam: intact and no change Splint Applied: Yes Patient Tolerated Procedure: well and no complications Orthopedic Splinting/Casting Injury #1: Side: left Lower Extremity Injury Location: ankle Lower Extremity Immobilizer: posterior splint and stirrup splint Other Orthopedic Equipment: crutches Medical Decision Making Patient presenting the emergency department for chief complaint of mechanical fall with injury to left ankle. She does state previous history of significant ankle fracture with multiple surgeries for repair. Denies any other injury or trauma. CMS is intact distal to injury but patient has significant swelling to ankle with noted deformity and significant medial malleolus tenderness and entire fibula tenderness. Exam is otherwise nondiagnostic. Given history of prescribed narcotic abuse will start patient with IV acetaminophen but will give further pain medication as needed. Radiological imaging was performed and demonstrates medial malleolus fracture with concern of possible anterior dislocation or at minimum displacement. Patient also has midshaft fibular fracture. Radiologist did note concern for syndesmotic injury. Patient gave consent to procedural sedation and reduction. Please see Dr. Lowry's note on the conscious sedation. Physical ma nipulation was performed and ankle was splinted to acceptable repositioning. Patient placed on orthopedic list and nonweightbearing as tolerated. After procedure patient did state significant improvement of discomfort and that she felt she could control her pain with nonnarcotics but was concerned about spasms and cramps which she has had before after immobilization and surgery. I do feel low risk of giving patient Flexeril and patient clearly states understanding of use. After discussion of diagnosis and plan of care patient has no further needs, questions, or concerns and states clear understanding to return to the emergency department for any worsening symptoms. This documentation was generated using [facility] system, please disregard any oddities of phrase or misspellings. 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) Status post sural nerve excision on 10/14/18 Posterior tibial tendon dysfunction (PTTD) of left lower extremity (Acute 08/20/16) Trigger thumb of left hand (Acute 12/18/17) Fracture of fifth metatarsal bone of left foot (Acute) Constipation (Acute) Hyperlipidemia (Acute) Medical History Bilateral lower extremity edema Dry eyes Dry mouth Other acquired deformities of left foot Hyperpronation syndrome Menopause Bilateral cataracts Seasonal allergies Hx of substance abuse Pain, joint, ankle, left Surgical History History of colonoscopy (~03/2021) History of esophagogastroduodenoscopy (EGD) (~03/2021) History of cataract surgery bilat w/ lenses History of appendectomy (~2006) History of ankle surgery x6 Social History (Reviewed 02/08/24 @ 17:25 by MEE Rausch Smoking/Tobacco Use Status: Former Tobacco Use Quit Date: 11/04/10 Smoking risk assessment performed?: Yes Alcohol Intake: current Alcohol Intake frequency: holidays/special occasions only Alcohol type: wine and hard liquor Drug use: Current Sobriety Substance use type: opiates Household members: significant other Housing: house Number of Children: 4 number of grandchildren: 2 current occupation: Retired from nursing What is your relationship status?: living with partner Panel score (0-1 are the most socially isolated patients): 1 What type of physical activity do you participate in: bicycling and swimming Duration: 30-45 minutes/day Frequency: 3-4 times per week Do you feel safe at home: Yes Do you feel safe in your relationship?: Yes
[2024-02-08] MEDS: ACETAMINOPHEN 1,000 MG/100 ML BTL 400 MG IVPB (16:16)
--- NOTE | 2024-02-08 16:25 | DI.VRAD_ITS ---
Addendum created by Sophia Mckinney MD on 02/08/2024 4:42:40 PM EDT: THIS REPORT CONTAINS FINDINGS THAT MAY BE CRITICAL TO PATIENT CARE. The findings were verbally communicated via telephone conference with KEVIN BABCOCK at 4:42 PM EDT on 02/08/2024. The findings were acknowledged and understood. Addendum created by Sophia Mckinney MD on 02/08/2024 4:36:07 PM EDT: On the associated tibia/fibula image from the same date, the distal tibia appears better aligned with respect to the talus. Clinical correlation is therefore required. In addition, on this study, there is some mild widening of the medial ankle mortise. Initial report created on 02/08/2024 4:25:23 PM EDT: PROCEDURE INFORMATION: Exam: XR Left Ankle Exam date and time: 02/08/2024 3:53 PM Age: 64 years old Clinical indication: Injury or trauma; Fall; Work related; Fracture, traumatic; Closed fracture; Left; Malleolus, lateral; Prior surgery; Surgery date: 6+ months; Surgery type: Ankle FX TECHNIQUE: Imaging protocol: Radiologic exam of the left ankle. Views: 3 or more views. COMPARISON: CR XR foot LT complete 08/18/2018 3:29 PM FINDINGS: Bones/joints: Surgical hardware remains noted in the foot. There is a displaced angulated fracture of the medial malleolus of the distal tibia. There is also a questionable 8 mm fracture fragment arising from the distal lateral tibia on series 2 (overlying the fibula). The tibia is anteriorly dislocated with respect to the talus. A healed 5th metatarsal fracture is seen. Soft tissues: Associated soft tissue swelling is seen. IMPRESSION: 1. There is a displaced angulated fracture of the medial malleolus of the distal tibia. There is also a questionable 8 mm fracture fragment arising from the distal lateral tibia on series 2 (overlying the fibula). 2.The tibia is anteriorly dislocated with respect to the talus. 3. Soft tissue swelling. Other findings/details as above. For findings regarding the leg, please refer to tibia/fibula dictation. Dictated and Authenticated by: Sophia Mckinney MD. Ordering:DAVID Hutchison MD
--- NOTE | 2024-02-08 16:34 | DI.VRAD_ITS ---
Addendum created by Sophia Mckinney MD on 02/08/2024 4:43:11 PM EDT: THIS REPORT CONTAINS FINDINGS THAT MAY BE CRITICAL TO PATIENT CARE. The findings were verbally communicated via telephone conference with KEVIN BABCOCK at 4:42 PM EDT on 02/08/2024. The findings were acknowledged and understood. Addendum created by Sophia Mckinney MD on 02/08/2024 4:39:36 PM EDT: The possible linear bony fragment versus foreign body is not identified on the ankle radiographs. This may also therefore be something external to the patient. Initial report created on 02/08/2024 4:33:45 PM EDT: PROCEDURE INFORMATION: Exam: XR Left Tibia and Fibula Exam date and time: 02/08/2024 3:54 PM Age: 64 years old Clinical indication: Injury or trauma; Fall; Fracture, traumatic; Closed fracture; Fibula; Left TECHNIQUE: Imaging protocol: Radiologic exam of the left tibia and fibula. Views: 2 views. COMPARISON: CR XR ANKLE LT COMPLETE 02/08/2024 3:53 PM FINDINGS: Bones/joints: Surgical hardware is again seen in the foot region. There is a fracture of the mid shaft of the fibula. Again noted is an angulated displaced fracture of the medial malleolus with widening of the medial ankle mortise. On the lateral ankle images from the same date, there is anterior displacement of the distal tibia with respect to the talus, most consistent with dislocation/severe subluxation. However, on the lateral tibia/fibula image (series 2 of this study), this appears better aligned. Clinical correlation required. Soft tissues: Soft tissue swelling is seen. Series 2 demonstrates a possible bony fragment versus linear foreign body measuring 3 mm anterior to the distal tibia. IMPRESSION: 1. Fracture of the mid shaft of the fibula. 2. Again noted is an angulated displaced fracture of the medial malleolus with widening of the medial ankle mortise. On the lateral ankle images from the same date, there is anterior displacement of the distal tibia with respect to the talus, most consistent with dislocation/severe subluxation. However, on the lateral tibia/fibula image (series 2 of this study), this appears better aligned. Clinical correlation required. 3. Soft tissue swelling is seen. Series 2 demonstrates a possible bony fragment versus linear foreign body measuring 3 mm anterior to the distal tibia. Other findings/details as above. Dictated and Authenticated by: Sophia Mckinney MD. Ordering:DAVID Hutchison MD
[2024-02-08] MEDS: Ketamine 500 MG/5 ML VIAL (17:12)
--- NOTE | 2024-02-08 17:22 | W.ED.PROC ---
Date of service: 02/08/24 Time of Service: 17:22 Procedures Orthopedic Joint Reduction Joint #1: Time Out Performed: Yes Side: left Joint Reduction Location: ankle Technique used: direct manipulation Splint Applied: Yes Additional Comments: posterior slab and stirrup Procedural Sedation ASA Class: I Preparation: monitor and storage bin tender applied, pulse oximeter, capnometry used and suction/airway equipment at bedside Ketamine dose (mg): 58 Patient Tolerated Procedure: well Complications: none Medical Decision Making Quality:SDOH Health Related Social Needs: No Data to Display
--- NOTE | 2024-02-08 17:25 | DI.RAD_ITS ---
Exam(s) XR ANKLE LT 2V EXAM: XR ANKLE LT 2V CLINICAL HISTORY: post reduction. TECHNIQUE: 2D digital imaging was performed. COMPARISON: CR,XR XR ANKLE LT COMPLETE from 02/08/2024 FINDINGS: Three post reduction views again reveal the medial malleolus fracture some improved alignment. There is also realignment of the tibiotalar joint. IMPRESSION: Improved alignment as described above on these post reduction images DATA REPOSITORY: RADIATION DOSE DELIVERED:
--- NOTE | 2024-02-08 18:15 | DI.VRAD_ITS ---
PROCEDURE INFORMATION: Exam: XR Left Ankle Exam date and time: 02/08/2024 5:36 PM Age: 64 years old Clinical indication: Screening exam; Post reduction of L ankle TECHNIQUE: Imaging protocol: Radiologic exam of the left ankle. Views: 1 or 2 views. COMPARISON: XR ANKLE LT COMPLETE 04/07/2024 15:53 FINDINGS: Bones/joints: Extensive postsurgical changes of the foot. Again seen is the medial malleolar fracture. Interval placement of a overlying cast. Relocation of the talotibial joint. Soft tissues: Unremarkable. IMPRESSION: Postreduction of distal tibial fracture dislocation. Dictated and Authenticated by: Eva Martin MD. Ordering:DAVID Hutchison MD
[2024-02-08] MEDS: Cyclobenzaprine 10 MG TAB, 3 TABS/BTL PO (18:29)
== END 2024-02-08 18:26 | disposition home or self-care (01) ==
PROVIDERS: Emergency Provider Nurse Practitioner Family; PCP Nurse Practitioner
DX: S82.52XA Displaced fracture of medial malleolus of left tibia, initial encounter for closed fracture (principal); S82.432A Displaced oblique fracture of shaft of left fibula, initial encounter for closed fracture; Z87.891 Personal history of nicotine dependence; W01.0XXA Fall on same level from slipping, tripping and stumbling without subsequent striking against object, initial encounter; Y93.01 Activity, walking, marching and hiking; Y92.017 Garden or yard in single-family (private) house as the place of occurrence of the external cause
CPT/HCPCS: 27762; 96374; 99152; 99284; 73590; 73600; 73610; J0131

== ENCOUNTER 2024-02-12 11:27 | Day surgery (SDC) | payer OTHER, SELFPAY ==
[2024-02-12] VITALS (9 sets, daily range): BP systolic 97–156; BP diastolic 58–97; PULSE 71–99; RESP 14–20; TEMP 36.2–36.8; O2SAT 93–98; BMI 36.3
--- NOTE | 2024-02-12 07:30 | W.PM.DSUDISC ---
Date of service: 02/12/24 Time of Service: 07:31 Discharge Plan Disposition Patient Disposition: Home Condition: Good Discharge Details Reason For Visit: ORIF L Ankle Attending Provider: Sammy Mercado Primary Care Provider: Quin Belle Home Meds and New Rx's Prescriptions: New acetaminophen 500 mg tablet 1,000 mg PO TID Qty: 90 3RF oxycodone 5 mg tablet 5 mg PO Q8H MDD 15mg PRN (Reason: pain) Qty: 10 0RF celecoxib 200 mg capsule 200 mg PO BID Qty: 60 0RF aspirin 81 mg tablet,delayed release (DR/EC) 81 mg PO BID Qty: 30 0RF Continued Calcium with Vitamin D 1 tab PO DAILY Patient Comments: 1200/1000 sucralfate [Carafate] 1 gram tablet 1 g PO QID Qty: 56 0RF Rx Instructions: Before meals and at bedtime gabapentin 300 mg capsule 900 mg PO TID Qty: 270 6RF mometasone [Nasonex] 50 mcg/actuation spray,non-aerosol 2 spray intranasal DAILY Rx Instructions: administer into each nostril albuterol sulfate [ProAir HFA] 90 mcg/actuation HFA aerosol inhaler 2 puff inhalation Q6H PRN omeprazole 40 mg capsule,delayed release(DR/EC) 40 mg PO DAILY Qty: 30 0RF Sublocade 100 mg/0.5 mL solution, extended rel syringe 100 mg SUBCUT QMONTH rosuvastatin 20 mg tablet 20 mg PO DAILY Patient Comments: TAKE ONE TABLET BY MOUTH EVERY DAY Discontinued acetaminophen 500 mg capsule 1,000 mg PO Q8H PRN (Reason: pain) Qty: 90 0RF Discharge Instructions Additional Instructions: Ankle ORIF Discharge Instructions Activity: You are NON WEIGHT BEARING. You should keep the leg elevated as much as possible. You may wiggle your toes and move your hip and knee. Dressings: You should keep your splint clean and dry. Do NOT get wet or dirty. If you have issues with your splint, please call the office at [phone] or the hospital after hours. Medications: - You should take Tylenol and Ibuprofen around the clock for baseline pain. - You have been prescribed a stronger narcotic for breakthrough pain. - You should take a Baby Aspirin (81mg) twice a day for blood clot prevention. Follow-up: 2 weeks Referrals: Sammy Mercado MD [ [facility] STAFF PHYSICIAN] - Equipment/Supplies: Non-Weight Bearing Crutches Activity:: Elevate Remove Dressings/Wound Care:: Do Not Remove Shower/Bathe:: Cover Diet:: As Tolerated Discharge Orders Discharge Orders: Discharge Order (Routine); Ordered 02/12/24 Ordered By: Levar Romo
[2024-02-12] MEDS: Acetaminophen 500 MG TAB 1000 MG PO (11:50)
[2024-02-12] MEDS: Celecoxib 200 MG CAP 400 MG PO (11:51)
--- NOTE | 2024-02-12 12:08 | W.PREOPHP ---
Assessment and Plan Assessment and plan (1) Fracture dislocation of left ankle: Status: Acute Assessment and plan: Nakita is a 64-year-old female who has an ankle fracture dislocation of the left side This primarily consist of a medial malleolus fracture which is slightly higher and more vertical than usual with some mild comminution. There is no distal fibular fracture but there is a high fibular fracture which signify syndesmotic injury. Given the instability of this fracture pattern and the dislocation I recommended proceeding with operative fixation. This would include open reduction internal fixation of the malleolus fragment, likely with 2 screws. I would then stabilize the syndesmosis with the use of a flexible fixation device. The proximal fibula fracture would not be directly fixed. I reviewed the risk of this procedure to include bleeding, infection, pain, stiffness, damage to nerves and vessels, damage to muscle and tendons, malunion, nonunion, prominence, hardware failure, need for repeat procedures. She did ask about the pain that she is now having over the medial midfoot which predated the fracture in the fall. This likely is related to further collapse of her midfoot which is seen on the x-rays with arthritis and asymmetric joint spacing about the navicular cuneiform joint of the left foot. I will look at the screws to make sure they are not causing any prominent pains but my expectation be they are not and I would hold on doing anything about this until after the fracture is fixed. All of her questions were answered. Will proceed with surgery as afternoon. History of Present Illness Narrative: Mikala is a 64-year-old female who unfortunately suffered a mechanical fall injuring her left ankle. She is seen in the emergency department where she was diagnosed with ankle fracture dislocation. This was successfully closed reduced with sedation. She was placed into a splint. She reports significant pain while she has been waiting on surgery. 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 She has had other procedures to fix this but is has some chronic pain and neuropathy since then. However, she has been functioning normally except for increasing pain about the medial midfoot on the left side. She has had issues with muscle cramps since the time of the injury. She is on chronic buprenorphine. She reports no changes to her health history besides this. She denies fever or chills. She denies chest pain or shortness of breath. 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) Status post sural nerve excision on 10/14/18 Posterior tibial tendon dysfunction (PTTD) of left lower extremity (Acute 08/20/16) Trigger thumb of left hand (Acute 12/18/17) Fracture of fifth metatarsal bone of left foot (Acute) Constipation (Acute) Hyperlipidemia (Acute) Medical History Bilateral lower extremity edema Dry eyes Dry mouth Other acquired deformities of left foot Hyperpronation syndrome Menopause Bilateral cataracts Seasonal allergies Hx of substance abuse Pain, joint, ankle, left Surgical History History of colonoscopy (~03/2021) History of esophagogastroduodenoscopy (EGD) (~03/2021) History of cataract surgery bilat w/ lenses History of appendectomy (~2006) History of ankle surgery x6 Social History Smoking/Tobacco Use Status: Former Tobacco Use Quit Date: 11/04/10 Smoking risk assessment performed?: Yes Alcohol Intake: current Alcohol Intake frequency: holidays/special occasions only Alcohol type: wine and hard liquor Drug use: Current Sobriety Substance use type: former substance user and opiates Household members: significant other Housing: house Number of Children: 4 number of grandchildren: 2 current occupation: Retired from nursing What is your relationship status?: living with partner Panel score (0-1 are the most socially isolated patients): 1 What type of physical activity do you participate in: bicycling and swimming Duration: 30-45 minutes/day Frequency: 3-4 times per week Do you feel safe at home: Yes Do you feel safe in your relationship?: Yes Meds Allergies and Home Medications Allergies Allergy/AdvReac Type Severity Reaction Status Date / Time naproxen sodium [From Aleve] Allergy Intermediate Hives Unverified 02/12/24 11:41 house dust Allergy Unknown Itching Verified 02/12/24 11:41 ibuprofen AdvReac Intermediate Other (See Verified 02/12/24 11:41 Comment) adhesive AdvReac Mild Blistering Unverified 02/12/24 11:41 morphine AdvReac hallucinations/can't Unverified 02/12/24 11:41 talk cats Allergy Unknown Skin Rash Uncoded 02/12/24 11:41 perfumes Allergy Unknown Itching Uncoded 02/12/24 11:41 Home Medications Medication Instructions Recorded Confirmed Type gabapentin 300 mg capsule 900 mg (3 x 300 mg) PO TID #270 09/23/18 02/12/24 Rx tab-caps Calcium with Vitamin D 1 tab PO DAILY 02/23/19 02/12/24 History albuterol sulfate 90 mcg/actuation 2 puff inhalation Q6H PRN 12/23/20 02/12/24 History aerosol inhaler (ProAir HFA) mometasone 50 mcg/actuation nasal 2 spray intranasal DAILY 12/23/20 02/11/24 History spray (Nasonex) sucralfate 1 gram tablet (Carafate) 1 g PO QID #56 tabs 03/31/21 02/12/24 Rx omeprazole 40 mg capsule,delayed 40 mg PO DAILY #30 caps 09/05/21 02/12/24 Rx release buprenorphine 100 mg/0.5 mL 100 mg subcut QMONTH 02/08/24 02/12/24 History solution,exten.rel.subcutaneous syringe (Sublocade) rosuvastatin 20 mg tablet 20 mg PO DAILY 02/08/24 02/12/24 History acetaminophen 500 mg tablet 1,000 mg (2 x 500 mg) PO TID #90 02/12/24 Rx tabs celecoxib 200 mg capsule 200 mg PO BID #60 caps 02/12/24 Rx oxycodone 5 mg tablet 5 mg PO Q8H PRN pain #10 tabs 02/12/24 Rx Exam Const General: cooperative, healthy appearing, comfortable and no acute distress Resp Effort & Inspection: normal respiratory effort Auscultation: clear to auscultation bilaterally Cardio Rate: regular rate Rhythm: regular rhythm Results Imaging Imaging Studies: X-ray of the left ankle shows initially an ankle fracture dislocation with a medial malleolus fracture. She had successful reduction demonstrated on subsequent x-rays of the left ankle. There is a high proximal fibular fracture seen on the tib-fib films. Last Vital Signs Temp 36.2 C L 02/12/24 11:44 Pulse 99 H 02/12/24 11:44 Resp 20 02/12/24 11:44 BP 156/97 H 02/12/24 11:44 Pulse Ox 96 02/12/24 11:44
[2024-02-12] MEDS: Lactated Ringers 1,000 ML 80 ML IV (12:19)
--- NOTE | 2024-02-12 12:53 | W.ANESPRE ---
General Info Date of Service Date Performed: 02/12/24 Height: 5 ft 2 in Weight: 90 kg Body Mass Index (BMI): 36.3 Surgical Procedure: Operation Date: 02/12/24 14:40 Proposed Procedure Side Surgeon p Ankle ORIF and Syndesmosis Left Sammy Mercado MD Meds Allergies and Home Medications Allergies Allergy/AdvReac Type Severity Reaction Status Date / Time naproxen sodium [From Aleve] Allergy Intermediate Hives Unverified 02/12/24 11:41 house dust Allergy Unknown Itching Verified 02/12/24 11:41 ibuprofen AdvReac Intermediate Other (See Verified 02/12/24 11:41 Comment) adhesive AdvReac Mild Blistering Unverified 02/12/24 11:41 morphine AdvReac hallucinations/can't Unverified 02/12/24 11:41 talk cats Allergy Unknown Skin Rash Uncoded 02/12/24 11:41 perfumes Allergy Unknown Itching Uncoded 02/12/24 11:41 Home Medication Medication Instructions Recorded gabapentin 300 mg capsule 900 mg (3 x 300 mg) PO TID #270 09/23/18 tab-caps Calcium with Vitamin D 1 tab PO DAILY 02/23/19 albuterol sulfate 90 mcg/actuation 2 puff inhalation Q6H PRN 12/23/20 aerosol inhaler (ProAir HFA) mometasone 50 mcg/actuation nasal 2 spray intranasal DAILY 12/23/20 spray (Nasonex) sucralfate 1 gram tablet (Carafate) 1 g PO QID #56 tabs 03/31/21 omeprazole 40 mg capsule,delayed 40 mg PO DAILY #30 caps 09/05/21 release buprenorphine 100 mg/0.5 mL 100 mg subcut QMONTH 02/08/24 solution,exten.rel.subcutaneous syringe (Sublocade) rosuvastatin 20 mg tablet 20 mg PO DAILY 02/08/24 acetaminophen 500 mg tablet 1,000 mg (2 x 500 mg) PO TID #90 02/12/24 tabs celecoxib 200 mg capsule 200 mg PO BID #60 caps 02/12/24 oxycodone 5 mg tablet 5 mg PO Q8H PRN pain #10 tabs 02/12/24 Current Visit Medications: Current Medications Generic Name Dose Route Start Last Admin Trade Name Freq PRN Reason Stop Dose Admin Acetaminophen 1,000 mg 02/12/24 06:00 02/12/24 11:50 Acetaminophen 500 Mg Tab PO 03/12/24 23:59 1,000 mg PREOP JARED Administration Acetaminophen 650 mg 02/12/24 07:30 Acetaminophen 325 Mg Tab PO 03/13/24 07:29 Q4H PRN PRN Celecoxib 400 mg 02/12/24 06:00 02/12/24 11:51 Celecoxib 200 Mg Cap PO 03/12/24 23:59 400 mg PREOP JARED Administration Ringer's Solution 1,000 mls @ 80 mls/hr 02/12/24 06:00 02/12/24 12:19 IV 03/12/24 23:59 80 mls/hr INFUSION JARED Administration Cefazolin Sodium/Dextrose 2 gm in 50 mls @ 100 mls/hr 02/12/24 06:00 Ancef Duplex IVPB 03/12/24 23:59 PREOP JARED Tranexamic Acid/Sodium Chloride 1,000 mg in 100 mls @ 600 mls/hr 02/12/24 06:00 IVPB 03/12/24 23:59 PREOP JARED IV Miscellaneous Supplies 1 each 02/12/24 06:00 Iv Access IV 03/12/24 23:59 DIRECTED JARED Oxycodone/Acetaminophen 1 tab 02/12/24 07:30 Oxycodone 5 Mg/Acetaminophen 325 Mg Tab PO 03/13/24 07:29 Q4H PRN PRN Pain Sodium Chloride 0 ml 02/12/24 06:00 Normal Saline Flush 10 Ml Syr IV 03/12/24 23:59 PRN PRN Sodium Chloride 0 ml 02/12/24 06:00 Normal Saline 10 Ml Vial IJ 03/12/24 23:59 DIRECTED PRN Sterile Water 0 ml 02/12/24 06:00 Water,Injection,Sterile 10 Ml Vial IJ 03/12/24 23:59 DIRECTED PRN PFSH Active Problems Active Problems: Problem Status Onset Code Fracture dislocation of left ankle S82.892A Fracture of medial malleolus of left tibia S82.52XA Fracture of shaft of left fibula S82.402A Peptic duodenitis K29.80 Esophagitis ~03/2021 K20.90 Gastritis ~03/2021 K29.70 Esophageal reflux ~03/2021 K21.9 Diverticula of colon ~03/2021 K57.30 Colon polyp, hyperplastic ~03/2021 K63.5 Acute right ankle pain 04/30/16 M25.571 Metatarsalgia of left foot 12/18/17 M77.42 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 Posterior tibial tendon dysfunction (PTTD) of left lower extremity 08/20/16 M76.822 Trigger thumb of left hand 12/18/17 M65.312 Fracture of fifth metatarsal bone of left foot S92.352A Constipation K59.00 Hyperlipidemia E78.5 Medical History Medical History Bilateral lower extremity edema Dry eyes Dry mouth Other acquired deformities of left foot Hyperpronation syndrome Menopause Bilateral cataracts Seasonal allergies Hx of substance abuse Pain, joint, ankle, left Surgical History Surgical History History of colonoscopy (~03/2021) History of esophagogastroduodenoscopy (EGD) (~03/2021) History of cataract surgery bilat w/ lenses History of appendectomy (~2006) History of ankle surgery x6 Tobacco Smoking/Tobacco Use Status: Former Tobacco Use Alcohol Alcohol Intake: current Alcohol intake frequency: holidays/special occasions only Alcohol type: wine and hard liquor Substance Use Substance use: Current Sobriety Substance use type: former substance user and opiates Vital Signs and Lab Results Vital Signs Most Recent Vital Signs in EMR: Most Recent Vital Signs Temp Pulse Resp BP Pulse Ox 36.2 C L 99 H 20 156/97 H 96 02/12/24 11:44 02/12/24 11:44 02/12/24 11:44 02/12/24 11:44 02/12/24 11:44 Lab Results Blood Type / Crossmatch: No Data to Display Complete Blood Count: No Data to Display Complete Metabolic Panel: No Data to Display Liver Function Panel: No Data to Display Coagulation Panel: No Data to Display Cardiac Panel: No Data to Display Arterial Blood Gas: No Data to Display Venous Blood Gas: No Data to Display Pancreas Panel: No Data to Display Thyroid Panel: No Data to Display Infectious Disease: No Data to Display Blood Cultures: No Data to Display Toxicology Panel: No Data to Display Anesthesia Assessment and Plan Anesthesia History Personal History: No History of Anesthesia Complications Family History: No Family History of Anesthesia Complications Exercise Tolerance Exercise Tolerance: Metabolic Equivalents>4 Pertinent Negatives Pertinent Negatives: No Major Cardiovascular Symptoms or Complaints, No Major Pulmonary Symptoms or Complaints and No History of CVA/TIA Cardiac & Pulmonary Exam Cardiac Exam: Normal S1/S2 Heart Sounds Pulmonary Exam: Clear Bilateral Breath Sounds Implantable Cardiac Device Does patient have a Pacemaker or an ICD?: No Airway Exam Known Difficult Airway: No Mallampati Class: 2 Mouth Opening: Normal (> 3cm) Thyromental Distance: Greater than 3 cm Neck Range of Motion: Full ROM Neck Circumference: Normal Teeth Condition: Normal Dentition and Loose or Chipped (Bottom right molar broken, not loose) ASA Classification ASA Score: ASA 2 Emergency Case?: No NPO Status NPO Status: NPO Clears >2 hours, Solids >8 hours Anesthesia Plan Resuscitation Status: Full Code Anesthesia Technique: General Anesthesia Airway Planned: LMA Pain Management: Surgeon and patient request nerve block (popliteal and adductor canal blocks) Monitors Used: Standard Monitors Preoperative Comments:: Discussed prior sural neurectomy and nerve issues in the patient's left lower extremity at length. Discussed risk of potential worsening of nerve problems in foot with nerve blocks, however, advised most likely best option for pain control. The patient agreed to the blocks today while expressing the risks and benefits.
--- NOTE | 2024-02-12 12:58 | W.ANESNERVE ---
Nerve Block Single Injection Procedure Date and Time Date Performed: 02/12/24 Procedure Start: 12:30 Location Where Procedure Performed Procedure Location: Day Surgery Unit Reason Performed: Postoperative Analgesia Requesting Provider: Sammy Mercado Timeout Performed Timeout Performed: Yes Monitoring Used ECG, Blood Pressure and SpO2 Sterility Sterility: Hand Hygiene, Surgical Cap, Surgical Mask, Sterile Gloves and Chlorhexidine Sedation Given During Procedure Sedation Given (Indicate Dose Given): Versed IV Dose:: 2 mg Patient Mental Status Patient Mental Status: Sedate with meaningful communication Nerve Block 1st Nerve Block: Laterality: Left Block Type: Adductor Canal Ultrasound Image Saved?: Yes Needle / Catheter Used: 100mm SonoPlex II Local Anesthetic Bolus (Indicate Dose Given): Lidocaine used for local infiltration of skin, Injected in 3-5ml increments after negative blood aspiration, Bupivacaine 0.5% Dose:: 8 ml and Lidocaine 2% Dose:: 2 ml Additives (Indicate Dose Given): Normal Saline (hydrodissection) Ultrasound: Sterile probe cover and gel used Nerve Stimulator: Supplement to Ultrasound use and No twitch or parasthesia noted < 0.5 mA Paresthesia: None Procedure Tolerated: No Complications and Patient tolerated well Procedure Outcome: Successful Performed By: Keegan Velasquez 2nd Nerve Block: Laterality: Left Block Type: Popliteal Sciatic Ultrasound Image Saved?: Yes Needle / Catheter Used: 100mm SonoPlex II Local Anesthetic Bolus (Indicate Dose Given): Lidocaine used for local infiltration of skin, Injected in 3-5ml increments after negative blood aspiration, Bupivacaine 0.5% Dose:: 15 ml and Lidocaine 2% Dose:: 2 ml Additives (Indicate Dose Given): Normal Saline (hydrodissection) Ultrasound: Sterile probe cover and gel used Nerve Stimulator: Supplement to Ultrasound use and No twitch or parasthesia noted < 0.5 mA Paresthesia: Left Paresthesia Duration: Transient (to behind knee cap per patient ) Procedure Tolerated: No Complications and Patient tolerated well Procedure Outcome: Successful Performed By: Keegan Velasquez
[2024-02-12] MEDS: ceFAZolin 2 GM/50 ML BAG IVPB (13:36)
[2024-02-12] MEDS: TRANEXAMIC ACID/SOD. CHL. 1,000 MG/100 ML BAG 600 MG IVPB (13:41)
--- NOTE | 2024-02-12 14:42 | DI.RAD_ITS ---
Exam(s) XR ANKLE LT 2V EXAM: XR ANKLE LT 2V CLINICAL HISTORY: Fracture of shaft of left fibula. TECHNIQUE: 2D and realtime digital imaging was performed. COMPARISON: CR,XR XR ANKLE LT 2V from 02/08/2024 FINDINGS: Hard copy images show placement of screws through the malleoli. Please see procedure note for details. Fluoro time: 57seconds RADIATION DOSE DELIVERED: william Rosa=2.83 mGy
--- NOTE | 2024-02-12 15:10 | ROE_ITS ---
Date of service: 02/12/24 Time of Service: 13:50 Operative Note Operative Note DATE OF PROCEDURE: 02/12/24 PRE-OP DIAGNOSIS: Left Ankle Fracture Dislocation POST-OP DIAGNOSIS: same PROCEDURE: Open Reduction and Internal Fixation of Left Ankle Fracture Dislocation - Medial Malleolus and Syndesmosis SURGEON: Sammy Mercado [employer]LECT[employer] SYSTEM MECHANIC: Levar Romo ANESTHESIA TYPE: General LMA/ETT and Primary Nerve Block Refer to Anesthesia Record ESTIMATED BLOOD LOSS: 50 PATHOLOGY: none sent TOURNIQUET TIME: 0 COMPLICATIONS: None Patient was transported to: PACU Patient's condition: stable Indications: Nakita who presented to the Emergency Department after a fall. X-rays confirmed the diagnosis of a left ankle fracture dislocation involving the medial malleolus and the proximal fibular shaft. I reviewed the possible treatment options and given the fracture, I recommended operative fixation. I discussed the technical details of the surgery. I reviewed the risks such as bleeding, infection, pain, stiffness, malunion, nonunion, hardware prominence, hardware faiilure, damage to nerves and vessels, blood clot. Despite these risks, she agreed to proceed. Findings: There is a slightly high and vertical fracture of the medial malleolus. This was openly reduced and secured with 3 cannulated 4.0 millimeter screws. There is a grossly unstable syndesmosis which was also able to be reduced and secured with a Synthes Fibulink device. Procedure Description: Nakita was greeted in the preoperative area. Consent was previously reviewed and signed. Peripheral nerve blocks were performed the day surgery unit by anesthesia. She was then taken back to the operating room. Once in the operating room, a general anesthesia was administered. The patient was transferred to the operating table in the supine position. She was positioned in the supine position with the operative side placed onto a bone foam ramp. All bony prominences were well padded. Arms were placed out to the side, padded, and secured. A single dose of TXA, 1 gram, was then administered IV. Prophylactic antibiotics, Cefazolin 2 grams, was given for prophylactic antibiotics. A timeout was performed for safe surgery. The left leg was prepped with Chloraprep. The leg was draped with a stockinette and extremity drape. Starting with the medial side, a longitudinal incision was made overlying the medial malleolus and the fracture. This taken sharply the skin. The fracture was encountered where fracture material was evacuated. The fracture was distracted and was irrigated. There was some intervening periosteum which was resected for visualization of the fracture, particular the anterior medial corner. The fracture was then manually manipulated reducing the anterior corner at the shoulder of the joint first. This was held in place while the K wire was advanced from the main malleolus into the distal tibia. The remainder of the medial fragment was inspected for its positioning and secured in appropriate, near-anatomic, position. This was once again held with another K wire from the 4.0 millimeter screw system. These 2 K wires were kept in place while the third K wire was placed given the size of the fracture fragment. X-ray confirmed per position of the K wires. I then placed a 4.0 mm cannulated screws in each position by individually drilling the pathway through the distal fracture fragment. Each screw had excellent fixation and bite into the bone with reduction of the fracture fragment with no gap and near anatomic reduction. X-ray confirmed appropriate positioning. The posterior most screw seem to violate the posterior cortex a few millimeters but was left in place given the excellent purchase into the bone. Attention was then turned to the syndesmosis. Using fluoroscopy the fibula was marked approximately 1 1.5 cm proximal to the profile. This area overlying the fibula was incised sharply. A may elevator was used to clear soft tissue from the lateral border of the fibula. A K wire from the Synthes Fibulink system was then advanced through the fibula into the tibia aiming posterior to anterior and staying parallel to the plafond approxi-1 to 1.5 cm proximal. Once this was advanced in all the way the tapered drill was used to repair the pathway for the Fibulink. Then the screw portion of the Fibulink was inserted into the tibia with excellent fixation. The Fibulink system was then inserted along with a washer and tightened. The ankle was kept in a dorsiflexed position with the syndesmosis reduced while the Fibulink was tightened. Final x-rays were obtained which showed near anatomic reduction of the ankle joint. 20 cc of 0.25% bupivacaine were injected throughout the medial lateral incision sites. The wounds were closed with 2-0 and 3-0 Vicryl followed by 4-0 nylon in the skin. A short leg splint was applied with the ankle in neutral positioning. At the end of the case, all counts were correct. Nakita tolerated the procedure well without known complication and was taken to the PACU for recovery. She will remain nonweightbearing in the left ankle. I will see her back in 2 weeks for splint removal, x-ray, and wound evaluation. Will use aspirin 81 mg twice daily for postoperative DVT prevention.
--- NOTE | 2024-02-12 15:10 | W.ANESPOSTOP ---
Postoperative Evaluation Date, Time and Location Date Performed: 02/12/24 Time Performed: 15:10 Patient Location: PACU Vital Signs Most Recent Imported Vital Signs: Most Recent Vital Signs Temp Pulse Resp BP Pulse Ox 36.6 C 86 20 117/64 98 02/12/24 12:30 02/12/24 12:30 02/12/24 12:30 02/12/24 12:30 02/12/24 12:30 Pain Score Most Recent Pain Score: Most Recent Pain Score Pain Level 0 02/12/24 12:30 Assessment Mental Status: Arousable with meaningful communication Airway and Respiratory Function: Patent airway with normal (patient baseline) respiratory exam Cardiovascular Function: Hemodynamically Stable Hydration Status: Adequately Hydrated Nausea & Vomiting: No Nausea or Vomiting Pain: Pt. Denies Any Pain Peripheral Nerve Block: Regional nerve block not resolved at time of post operative discharge
== END 2024-02-12 16:30 | disposition home or self-care (01) ==
LOC: SUR 11:28
PROVIDERS: PCP Nurse Practitioner; Visit Provider Student in an Organized Health Care Education/Training Program
PROC: (CPT 27766; principal; 2024-02-12 14:30)
DX: S82.52XA Displaced fracture of medial malleolus of left tibia, initial encounter for closed fracture (principal); S93.432A Sprain of tibiofibular ligament of left ankle, initial encounter; S82.402A Unspecified fracture of shaft of left fibula, initial encounter for closed fracture; W19.XXXA Unspecified fall, initial encounter; E78.5 Hyperlipidemia, unspecified; K21.9 Gastro-esophageal reflux disease without esophagitis
CPT/HCPCS: 27766; 27829; C1776; 76000; 76942; 73600; J0665; J0690; J1100; J2250; J2371; J2405; J2704

== ENCOUNTER 2024-02-24 15:58 | Outpatient (CLI) | payer OTHER, SELFPAY ==
--- NOTE | 2024-02-24 15:53 | DI.RAD_ITS ---
Exam(s) XR ANKLE LT COMPLETE EXAM: XR ANKLE LT COMPLETE CLINICAL HISTORY: S/P ORIF L ANKLE. TECHNIQUE: 2D digital imaging was performed. Three images were obtained. AP, lateral and oblique vi ews were obtained. COMPARISON: XA XR ANKLE LT 2V from 02/12/2024 FINDINGS: BONES: There are stable post operative changes present. No new fracture or dislocation. The medial m alleolar fracture is still visualized. Prior hindfoot fusion is again seen. There is a small planta r calcaneal spur. JOINTS: There are degenerative changes seen and the foot. SOFT TISSUE: Mild soft tissue swelling of the ankle. IMPRESSION: Stable postoperative changes. DATA REPOSITORY: RADIATION DOSE DELIVERED:
== END 2024-02-24 15:59 | disposition home or self-care (01) ==
LOC: DIORS 15:58
PROVIDERS: PCP Nurse Practitioner; Referring Provider Nurse Practitioner; Visit Provider Student in an Organized Health Care Education/Training Program
DX: S82.892D Other fracture of left lower leg, subsequent encounter for closed fracture with routine healing; X58.XXXD Exposure to other specified factors, subsequent encounter
CPT/HCPCS: 73610

== ENCOUNTER → 2024-03-06 08:38 | Outpatient (CLI) | payer OTHER, SELFPAY ==
--- NOTE | 2024-03-06 | DI.US_ITS ---
Exam(s) US LOWER EXTREMITY VENOUS LT EXAM: US LOWER EXTREMITY VENOUS LT CLINICAL HISTORY: LEFT LEG SWELLING M79.89 TECHNIQUE: Grayscale, color, and doppler imaging of the deep venous system of the left lower extremi ty was performed. COMPARISON: US POCUS EXAM from 02/12/2024 FINDINGS: There is no evidence of intraluminal thrombus and there is normal compression and augmentation demons trated within the common femoral vein, femoral vein, and popliteal vein. In the ipsilateral calf the interrogated veins also exhibit normal compression/ augmentation properti es. The ipsilateral saphenofemoral junction is patent. IMPRESSION: 1. No evidence of DVT in the left lower extremity. DATA REPOSITORY:
== END ==
PROVIDERS: PCP Nurse Practitioner; Visit Provider Nurse Practitioner
DX: M79.89 Other specified soft tissue disorders (principal)
CPT/HCPCS: 93971

== ENCOUNTER 2024-03-26 15:49 | Outpatient (CLI) | payer OTHER, SELFPAY ==
--- NOTE | 2024-03-26 13:45 | DI.RAD_ITS ---
Exam(s) XR ANKLE LT COMPLETE EXAM: XR ANKLE LT COMPLETE CLINICAL HISTORY: S/P ORIF OF L ANKLE TECHNIQUE: 2D digital imaging was performed. Three views. COMPARISON: CR,XR XR ANKLE LT 2V from 02/08/2024 CR,XR XR ANKLE LT COMPLETE from 02/08/2024 XA XR ANKLE LT 2V from 02/12/2024 CR XR ANKLE LT COMPLETE from 02/24/2024 FINDINGS: BONES: There has been could continued healing of the medial malleolar fracture. There has been no ch wan in hardware alignment. Prior hindfoot fusion again noted. No bony destructive lesion is seen. JOINTS:The ankle mortise is normally aligned. SOFT TISSUE: Normal. IMPRESSION: Stable fracture and hardware alignment. DATA REPOSITORY: RADIATION DOSE DELIVERED:
== END 2024-03-26 15:50 | disposition home or self-care (01) ==
LOC: DIORS 15:50
PROVIDERS: PCP Nurse Practitioner; Visit Provider Student in an Organized Health Care Education/Training Program
DX: S82.892D Other fracture of left lower leg, subsequent encounter for closed fracture with routine healing (principal); X58.XXXD Exposure to other specified factors, subsequent encounter
CPT/HCPCS: 73610

== ENCOUNTER 2024-04-27 09:08 | Outpatient (CLI) | payer OTHER, SELFPAY ==
--- NOTE | 2024-04-27 08:45 | DI.RAD_ITS ---
Exam(s) XR ANKLE LT COMPLETE EXAM: XR ANKLE LT COMPLETE CLINICAL HISTORY: left ankle fx. TECHNIQUE: 2D digital imaging was performed. Four images were obtained. AP, lateral and oblique vie ws were obtained. COMPARISON: CR XR ANKLE LT COMPLETE from 02/24/2024 CR XR ANKLE LT COMPLETE from 03/26/2024 FINDINGS: BONES: There are stable post operative changes present. There is a stable lucency around the distal fibular orthopedic hardware. No new fracture or dislocation. There is a small plantar calcaneal spur . There is mild periosteal reaction around the distal fibula not present on the prior examination. There is a lucency at the cortex posteriorly on the lateral view. Due to the positioning of the ankl e, this may arise from the posterior tibia or the posterior fibula. JOINTS: There are degenerative changes again seen at the articulation of the navicular with the [place] form is. SOFT TISSUE: Soft tissue swelling around the ankle. IMPRESSION: 1. Postoperative changes of the ankle as described above. 2. There is a lucency seen on the lateral view at the posterior cortex of either the distal tibia or distal fibula. With the new periosteal reaction seen on the AP view adjacent to the distal fibula, t his lucency is likely arising from the fibula. Infection or acute fracture should be considered. 3. Soft tissue swelling about the ankle. DATA REPOSITORY: RADIATION DOSE DELIVERED:
== END 2024-04-27 09:09 | disposition home or self-care (01) ==
LOC: DIORS 09:09
PROVIDERS: PCP Nurse Practitioner; Referring Provider Nurse Practitioner; Visit Provider Student in an Organized Health Care Education/Training Program
DX: S82.892D Other fracture of left lower leg, subsequent encounter for closed fracture with routine healing; X58.XXXD Exposure to other specified factors, subsequent encounter
CPT/HCPCS: 73610

== ENCOUNTER 2024-06-29 13:59 | Outpatient (CLI) | payer OTHER, SELFPAY ==
--- NOTE | 2024-06-29 11:11 | DI.RAD_ITS ---
Exam(s) XR ANKLE LT COMPLETE EXAM: XR ANKLE LT COMPLETE CLINICAL HISTORY: S/P ORIF L ANKLE. TECHNIQUE: 2D digital imaging was performed. COMPARISON: CR XR ANKLE LT COMPLETE from 04/27/2024 FINDINGS: Multilevel hardware is again noted There is again noted opening up/separate of the components of the horizontal syndesmotic screw and so me channel lucency around the fibular component as well as overlying subperiosteal bone growth. Ther e is slight widening the ankle mortise. Also some tilting. There are 3 screws also evident across healing-healed medial malleolus fracture site. The screws ezra ear intact. Subtalar joint fusion screws again noted as is usual across the tail 0 navicular and calcaneocuboid a rticulations. Small inferior calcaneal spur again noted. IMPRESSION: Again noted is separation of the components of the horizontal syndesmotic screw in the distal fibula- tibia with mariel screw channel lucency in the fibula as well as increasing overlying periosteal bone f ormation. These findings are most probably consistent with loosening of this component thin the fibu la. There is slight widening the ankle mortise. Other findings is described above. DATA REPOSITORY: RADIATION DOSE DELIVERED:
== END 2024-06-29 14:00 | disposition home or self-care (01) ==
LOC: DIORS 14:00
PROVIDERS: PCP Nurse Practitioner; Visit Provider Student in an Organized Health Care Education/Training Program
DX: S82.892D Other fracture of left lower leg, subsequent encounter for closed fracture with routine healing (principal); X58.XXXD Exposure to other specified factors, subsequent encounter
CPT/HCPCS: 99213; 73610

== ENCOUNTER 2024-08-24 15:40 | Outpatient (CLI) | payer MEDICARE, SELFPAY ==
--- NOTE | 2024-08-24 10:30 | DI.RAD_ITS ---
Exam(s) XR ANKLE LT COMPLETE EXAM: XR ANKLE LT COMPLETE CLINICAL HISTORY: F/U LEFT ANKLE ORIF. TECHNIQUE: 2D digital imaging was performed. COMPARISON: CR XR ANKLE LT COMPLETE from 06/29/2024 FINDINGS: 3 views Again noted is separation of the components of the horizontal syndesmotic screw and some channel luce ncy around the fibular component. Slight widening of the ankle mortise is again noted. Three screws are again noted across the healing/healed medial malleolus fracture site, without loosen ing. Subtalar fusion screws are again noted as are screws across the talonavicular and calcaneocuboid join ts. Small inferior calcaneal spur is again noted. There are no fractures. No evidence of osteomyel itis. IMPRESSION: Findings appear radiographically unchanged from images of 06/29/2024. DATA REPOSITORY: RADIATION DOSE DELIVERED:
== END 2024-08-24 15:41 | disposition home or self-care (01) ==
LOC: DIORS 15:42
PROVIDERS: PCP Nurse Practitioner; Visit Provider Student in an Organized Health Care Education/Training Program
DX: S82.892D Other fracture of left lower leg, subsequent encounter for closed fracture with routine healing (principal); X58.XXXD Exposure to other specified factors, subsequent encounter; G57.32 Lesion of lateral popliteal nerve, left lower limb
CPT/HCPCS: 99213; 73610

== ENCOUNTER 2024-09-09 08:21 | Day surgery (SDC) | payer MEDICARE, SELFPAY ==
[2024-09-09 08:46] VITALS: BP 139/87; PULSE 85; RESP 16; TEMP 36.6; O2SAT 96
[2024-09-09] MEDS: Acetaminophen 500 MG TAB 1000 MG PO (09:02)
[2024-09-09] MEDS: Gabapentin 300 MG CAP PO (09:03)
[2024-09-09] MEDS: Celecoxib 200 MG CAP 400 MG PO (09:03)
[2024-09-09] MEDS: Lactated Ringers 500 ML 30 ML IV (09:40)
--- NOTE | 2024-09-09 10:24 | W.ANESPRE ---
General Info Date of Service Date Performed: 09/09/24 Height: 5 ft 2 in Weight: 88.7 kg Body Mass Index (BMI): 35.7 Surgical Procedure: Operation Date: 09/09/24 11:25 Proposed Procedure Side Surgeon p Ankle Nerve Decompression Left Sammy Mercado MD Meds Allergies and Home Medications Allergies Allergy/AdvReac Type Severity Reaction Status Date / Time naproxen sodium (From Aleve) Allergy Intermediate Hives Unverified 09/09/24 08:45 house dust Allergy Unknown Itching Verified 09/09/24 08:45 ibuprofen AdvReac Intermediate Other (See Verified 09/09/24 08:45 Comment) adhesive AdvReac Mild Blistering Unverified 09/09/24 08:45 morphine AdvReac hallucinations/can't Unverified 09/09/24 08:45 talk cats Allergy Unknown Skin Rash Uncoded 09/09/24 08:45 perfumes Allergy Unknown Itching Uncoded 09/09/24 08:45 Home Medication ?Medication ?Instructions ?Recorded gabapentin 300 mg capsule 900 mg (3 x 300 mg) PO TID #270 09/23/18 tab-caps Calcium with Vitamin D 1 tab PO DAILY 02/23/19 mometasone 50 mcg/actuation nasal 2 spray intranasal DAILY 12/23/20 spray (Nasonex) omeprazole 40 mg capsule,delayed 40 mg PO DAILY #30 caps 09/05/21 release buprenorphine 100 mg/0.5 mL 100 mg subcut QMONTH 02/08/24 solution,exten.rel.subcutaneous syringe (Sublocade) rosuvastatin 20 mg tablet 20 mg PO DAILY 02/08/24 acetaminophen 500 mg tablet 1,000 mg (2 x 500 mg) PO TID #90 02/12/24 tabs gabapentin 600 mg tablet 1,200 mg (2 x 600 mg) PO QHS #14 07/03/24 tabs celecoxib 200 mg capsule See Rx Instructions .Route 07/19/24 .COMPLEX #60 caps Current Visit Medications: Current Medications Generic Name Dose Route Start Last Admin Trade Name Freq PRN Reason Stop Dose Admin Acetaminophen 1,000 mg 09/09/24 06:00 09/09/24 09:02 Acetaminophen 500 Mg Tab PO 09/09/24 23:59 1,000 mg PREOP JARED Administration Celecoxib 400 mg 09/09/24 06:00 09/09/24 09:03 Celecoxib 200 Mg Cap PO 09/09/24 23:59 400 mg PREOP JARED Administration Gabapentin 300 mg 09/09/24 06:00 09/09/24 09:03 Gabapentin 300 Mg Cap PO 09/09/24 23:59 300 mg PREOP JARED Administration Cefazolin Sodium/Dextrose 2 gm in 50 mls @ 100 mls/hr 09/09/24 06:00 Ancef Duplex IVPB 09/09/24 23:59 PREOP JARED Tranexamic Acid/Sodium Chloride 1,000 mg in 100 mls @ 600 mls/hr 09/09/24 06:00 IVPB 09/09/24 23:59 PREOP JARED Ringer's Solution 500 mls @ 30 mls/hr 09/09/24 10:00 09/09/24 09:40 IV 10/09/24 09:40 30 mls/hr INFUSION JARED Administration IV Miscellaneous Supplies 1 each 09/09/24 06:00 Iv Access IV 09/09/24 23:59 DIRECTED JARED Sodium Chloride 0 ml 09/09/24 06:00 Normal Saline Flush 10 Ml Syr IV 09/09/24 23:59 PRN PRN Sodium Chloride 0 ml 09/09/24 06:00 Normal Saline 10 Ml Vial IJ 09/09/24 23:59 DIRECTED PRN Sterile Water 0 ml 09/09/24 06:00 Water,Injection,Sterile 10 Ml Vial IJ 09/09/24 23:59 DIRECTED PRN PFSH Active Problems Active Problems: Problem Status Onset Code Disorder of left superficial peroneal nerve Acute G57.32 Fracture dislocation of left ankle Acute S82.892A Peptic duodenitis Acute K29.80 Esophagitis Acute ~03/2021 K20.90 Gastritis Acute ~03/2021 K29.70 Esophageal reflux Chronic ~03/2021 K21.9 Diverticula of colon Acute ~03/2021 K57.30 Colon polyp, hyperplastic Acute ~03/2021 K63.5 Acute right ankle pain Acute 04/30/16 M25.571 Metatarsalgia of left foot Acute 12/18/17 M77.42 Neuropathy of left sural nerve Acute 12/18/17 G57.82 Posterior tibial tendon dysfunction (PTTD) of left lower extremity Acute 08/20/16 M76.822 Trigger thumb of left hand Acute 12/18/17 M65.312 Fracture of fifth metatarsal bone of left foot Acute S92.352A Constipation Acute K59.00 Hyperlipidemia Acute E78.5 Medical History Medical History Bilateral lower extremity edema Dry eyes Dry mouth Other acquired deformities of left foot Hyperpronation syndrome Menopause Bilateral cataracts Seasonal allergies Hx of substance abuse Pain, joint, ankle, left Surgical History Surgical History History of colonoscopy (~03/2021) History of esophagogastroduodenoscopy (EGD) (~03/2021) History of cataract surgery bilat w/ lenses History of appendectomy (~2006) History of ankle surgery x6 Tobacco Smoking/Tobacco Use Status: Former Tobacco Use Alcohol Alcohol Intake: current Alcohol intake frequency: a few times a week Alcohol type: wine Substance Use Substance use: Current Sobriety Substance use type: former substance user and opiates Vital Signs and Lab Results Vital Signs Most Recent Vital Signs in EMR: Most Recent Vital Signs Temp Pulse Resp BP Pulse Ox 36.6 C 85 16 139/87 96 09/09/24 08:46 09/09/24 08:46 09/09/24 08:46 09/09/24 08:46 09/09/24 08:46 Lab Results Blood Type / Crossmatch: No Data to Display Complete Blood Count: No Data to Display Complete Metabolic Panel: No Data to Display Liver Function Panel: No Data to Display Coagulation Panel: No Data to Display Cardiac Panel: No Data to Display Arterial Blood Gas: No Data to Display Venous Blood Gas: No Data to Display Pancreas Panel: No Data to Display Thyroid Panel: No Data to Display Infectious Disease: No Data to Display Blood Cultures: No Data to Display Toxicology Panel: No Data to Display Anesthesia Assessment and Plan Anesthesia History Personal History: No History of Anesthesia Complications Family History: No Family History of Anesthesia Complications Exercise Tolerance Exercise Tolerance: Metabolic Equivalents>4 Pertinent Negatives Pertinent Negatives: No Symptoms of GERD Cardiac & Pulmonary Exam Cardiac Exam: Normal S1/S2 Heart Sounds Pulmonary Exam: Clear Bilateral Breath Sounds Implantable Cardiac Device Does patient have a Pacemaker or an ICD?: No Airway Exam Known Difficult Airway: No Mallampati Class: 3 Mouth Opening: Normal (> 3cm) Thyromental Distance: Greater than 3 cm Neck Range of Motion: Full ROM Neck Circumference: Normal Teeth Condition: Normal Dentition and Loose or Chipped (Bottom right molar broken, not loose) ASA Classification ASA Score: ASA 2 Emergency Case?: No NPO Status NPO Status: NPO Clears >2 hours, Solids >8 hours Anesthesia Plan Resuscitation Status: Full Code Anesthesia Technique: General Anesthesia Airway Planned: Natural Airway Monitors Used: Standard Monitors
[2024-09-09 10:25] VITALS: BMI 35.7
[2024-09-09] MEDS: ceFAZolin 2 GM/50 ML BAG IVPB (11:05)
[2024-09-09] MEDS: TRANEXAMIC ACID/SOD. CHL. 1,000 MG/100 ML BAG 600 MG IVPB (11:10)
--- NOTE | 2024-09-09 11:20 | PDOC.DSDIS_ITS ---
Date of service: 09/09/24 Time of Service: 11:24 Discharge Plan Disposition Patient Disposition: Home Condition: Good Discharge Details Reason For Visit: Decompression left superficial peroneal nerve Attending Provider: Sammy Mercado Primary Care Provider: Quin Belle Home Meds and New Rx's Prescriptions: New hydrocodone-acetaminophen 5-325 mg tablet 1 tab PO Q6H PRN (Reason: pain) Qty: 4 0RF Continued Calcium with Vitamin D 1 tab PO DAILY Patient Comments: 1200/1000 gabapentin 300 mg capsule 900 mg PO TID Qty: 270 6RF mometasone [Nasonex] 50 mcg/actuation spray,non-aerosol 2 spray intranasal DAILY Rx Instructions: administer into each nostril omeprazole 40 mg capsule,delayed release(DR/EC) 40 mg PO DAILY Qty: 30 0RF gabapentin 600 mg tablet 1,200 mg PO QHS Qty: 14 0RF Rx Instructions: Take two tablets at bedtime celecoxib 200 mg capsule See Rx Instructions .ROUTE .COMPLEX Qty: 60 3RF Dose Instruction: TAKE ONE CAPSULE BY MOUTH TWICE A DAY Rx Instructions: TAKE ONE CAPSULE BY MOUTH TWICE A DAY Sublocade 100 mg/0.5 mL solution, extended rel syringe 100 mg SUBCUT QMONTH rosuvastatin 20 mg tablet 20 mg PO DAILY Patient Comments: TAKE ONE TABLET BY MOUTH EVERY DAY acetaminophen 500 mg tablet 1,000 mg PO TID Qty: 90 3RF Discharge Instructions Additional Instructions: Ankle Nerve Decompressionl Discharge Instructions Activity: You may weight bear as tolerated. You should keep the leg elevated as much as possible. You may wiggle your toes and move your hip and knee. You may transition to regular footwear as tolerated. Dressings: You should keep the initial dressing on for one. After 3 days, you may shower however should keep the dressing covered. Once the dressing is removed you may shower without covering the wound. Medications: - You should continue your acetaminophen and celecoxib around the clock for baseline pain. - You have been prescribed a stronger narcotic, Hydrocodone, for breakthrough pain. Follow-up: 2 weeks Stand Alone Forms: Anesthesia Discharge InstIvone, Bryan Mike ([facility]) Referrals: Sammy Mercado MD [ [facility] STAFF PHYSICIAN] - 09/21/24 10:15 am Equipment/Supplies: Partial Weight Bearing Crutches Activity:: Activity as Tolerated Diet:: As Tolerated Discharge Orders Discharge Orders: Discharge Order (Routine); Ordered 09/09/24 Ordered By: Levar Romo DS: Diagnosis Discharge Diagnosis (1) Disorder of left superficial peroneal nerve: Status: Acute
[2024-09-09] MEDS: Bupivacaine 0.5% Pres-Free W/EPI 30 ML VIAL (11:35)
[2024-09-09 11:58] VITALS: BP 106/75; PULSE 82; RESP 16; TEMP 36; O2SAT 94
[2024-09-09 12:36] VITALS: BP 112/69; PULSE 76; RESP 16; TEMP 36.1; O2SAT 93
--- NOTE | 2024-09-09 12:43 | W.ANESPOSTOP ---
Postoperative Evaluation Date, Time and Location Date Performed: 09/09/24 Time Performed: 12:43 Patient Location: Day Surgery Unit Vital Signs Most Recent Imported Vital Signs: Most Recent Vital Signs Temp Pulse Resp BP Pulse Ox 36.1 C L 76 16 112/69 93 09/09/24 12:36 09/09/24 12:36 09/09/24 12:36 09/09/24 12:36 09/09/24 12:36 Pain Score Most Recent Pain Score: Most Recent Pain Score Pain Level 0 09/09/24 11:58 Assessment Mental Status: Awake (Alert & Oriented to Patient Baseline) Airway and Respiratory Function: Patent airway with normal (patient baseline) respiratory exam Cardiovascular Function: Hemodynamically Stable Hydration Status: Adequately Hydrated Nausea & Vomiting: No Nausea or Vomiting Pain: Pt. Denies Any Pain Peripheral Nerve Block: Patient did not receive a nerve block
--- NOTE | 2024-09-09 13:40 | W.PM.OP ---
Date of service: 09/09/24 Time of Service: 11:00 Operative Note Operative Note DATE OF PROCEDURE: 09/09/24 PRE-OP DIAGNOSIS: Left Superficial Peroneal Neuritis POST-OP DIAGNOSIS: same PROCEDURE: Decompression of left superficial peroneal nerve and fasciotomy SURGEON: Sammy Mercado ANESTHESIA TYPE: General LMA/ETT Refer to Anesthesia Record ESTIMATED BLOOD LOSS: 5 TOURNIQUET TIME: 0 COMPLICATIONS: None Patient was transported to: same day Patient's condition: stable Indications: Nakita is a 64-year-old female who I have seen previously for multiple orthopedic issues. Most recently she is recovering from an ankle fracture. However, she reports worsening neuropathic type pain about the lateral distal leg and the dorsal lateral left foot. The seem to be associated with the superficial peroneal nerve proximal to the previous surgical site with a positive Tinel's in the office. She continues to have reproducible neuropathic symptoms about the left foot and therefore I offered decompression of the superficial peroneal nerve. I reviewed the technical details of the surgery. I discussed the risk to include bleeding, infection, pain, stiffness, continued symptoms, and damage to the nerve, persistent numbness. Despite these risk, she elects to proceed. Findings: There was scarring against the superficial peroneal nerve along with some inflammation as it exited the anterior compartment. A neurolysis was performed of the nerve as well as the fasciotomy overlying the nerve of the anterior compartment. Procedure Description: Nakita was greeted in the preoperative holding area. I did and was confirmed the correct site was identified and marked. The consent was reviewed the patient and signed. History and physical was updated. She was taken back to the operating room placed in the supine position. The left leg was prepped ChloraPrep and draped in a standard fashion. Prophylactic and biotics in the form of cefazolin were administered. A timeout is performed for safe surgery. The proposed surgical site was made over the lateral leg extending from the previous incision over the distal?lateral leg proximally. Previous markings were on the skin of where the positive Tinel's was located in the approximate location of superficial peroneal nerve based on anatomical studies. This report surgical site was then anesthetized with 0.5% bupivacaine. A longitude incision was then made, approxi-10 cm in length. This was taken down sharply the skin. Blunt dissection was carried down to the level of the superficial fascia. At this level there was noted to be no defect in the fascia. I dissected proximally where I was able to see the superficial peroneal nerve exiting the anterior compartment. This seemed to be slightly in a different location as expecting anatomically. There was notable inflammatory tissue and some adherence of the nerve to the fascial opening. I made a small cut in the anterior fascia and then used a Metzenbaum scissors to open up the anterior fascia adjacent to the nerve so the nerve is now free. Now working from proximal to distal I was able to evaluate the nerve which was scarred into the soft tissues adjacent to the fascia. There is significant amount of adhesions in this area, more than I was ever expecting, particular since this was outside of any previous surgical site. I slowly debrided any scar tissue off the superficial peroneal nerve. There is a interval between the scar tissue and the glossy white surface the nerve was able to identify and develop. There is some branching of the nerve posteriorly as I moved distally. These branches were significantly adherent and difficult to dissect out completely. However, I did protect them and try to free them up from any surrounding adhesions. The nerve is further dissected distally such as able to see it all the way to the anterior ankle. The fasciotomy was also completed around the nerve to make sure there is no other adhesions in this area. I then turned my attention posteriorly. She did have some reproducible pain posteriorly. Her sural nerve previously been resected. I did not find any significant neural tissue in this area. Did not see any inflammatory tissue. Therefore, did not do any further dissection of this region. The wounds then thoroughly irrigated. The deep tissues were closed with 2-0 Vicryl. The skin was closed with a running subcuticular 4-0 Monocryl. This was reinforced with skin glue. A Mepilex silver dressing was applied followed by an Mac wrap. At the end of the case all counts were correct.
== END 2024-09-09 12:56 | disposition home or self-care (01) ==
PROVIDERS: PCP Nurse Practitioner; Visit Provider Student in an Organized Health Care Education/Training Program
PROC: (CPT 27650; principal; 2024-09-09 11:15)
DX: G57.32 Lesion of lateral popliteal nerve, left lower limb (principal); K21.9 Gastro-esophageal reflux disease without esophagitis; K29.70 Gastritis, unspecified, without bleeding; E78.5 Hyperlipidemia, unspecified
CPT/HCPCS: 64708; 27600; J0690; J1100; J2371; J2405; J2704

== ENCOUNTER → 2024-09-21 10:15 | Outpatient (BNVA) | payer MEDICARE, SELFPAY | PROVIDERS: PCP Nurse Practitioner; Referring Provider Nurse Practitioner | DX: S82.892D Other fracture of left lower leg, subsequent encounter for closed fracture with routine healing (principal); X58.XXXD Exposure to other specified factors, subsequent encounter; G57.32 Lesion of lateral popliteal nerve, left lower limb | CPT/HCPCS: 99024 ==

== ENCOUNTER 2024-09-28 01:18 | Outpatient (CLI) | payer MEDICARE, SELFPAY ==
--- NOTE | 2024-09-28 08:50 | DI.MAMMO_ITS ---
Exam(s) MAMMO SCREENING EXAM: MAMMO SCREENING CLINICAL HISTORY: Screening, Z12.39 TECHNIQUE: Bilateral full field digital CC and MLO mammographic images were obtained with 3D tomosyn thesis and utilizing computer aided detection (CAD). COMPARISON: Available for comparison. FINDINGS: Masses/Architectural Distortion: None seen. Microcalcifications: No suspicious pleomorphic-type are seen. Skin Thickening/Nipple Retraction: None. IMPRESSION: 1. No significant interval change with no specific features of malignancy noted. 2. Unless there is more urgent need, screening mammography is recommended, as per [place] [employer] guidelines. BI-RADS Category 1 - Negative Breast Density - Category A - Almost entirely fatty Breast density category C or D implies that the patient has dense breast tissue. Dense breast tissue is very common and is not abnormal but dense breast tissue can make it harder to find cancer on a ma mmogram. Also, dense breast tissue may increase their breast cancer risk. This information about the result of the mammogram report was provided to the patient to raise their awareness. Use this report when you speak with the patient about their risks for breast cancer, which includes their family hist ory. At that time, you may recommend for more screening tests (Ultrasound or MRI) as they might be us eful based on their risk. A negative radiographic report should not delay biopsy if a dominant or clinically suspicious mass is present. Up to ten percent of cancers are not identified on mammography. A negative report may reinforce clinical impression. Adenosis and dense breasts may obscure an underlying neoplasm. False positive reports average 6 to 10%. Patient will receive a letter notifying them of these results.
== END 2024-09-28 01:38 ==
LOC: DI 01:19
PROVIDERS: PCP Nurse Practitioner; Visit Provider Nurse Practitioner
DX: Z12.31 Encounter for screening mammogram for malignant neoplasm of breast (principal); R92.313 Mammographic fatty tissue density, bilateral breasts
CPT/HCPCS: 77063; 77067